=== PATIENT | female | born 1930 | race Caucasian/White ===

== ENCOUNTER → 2016-05-03 | Outpatient (CLI) | payer MEDICARE, BC ==
[2016-05-03 09:00] LABS: CH 30.1; CHCM 33.1; HCT 35.2 % (34.0-46.0); HDW 2.37; HGB 11.6 gm/dL (11.4-16.0); MCH 30.2 pg (25.0-35.0); MCV 91.4 fL (80.0-100.0); Mean Platelet Volume 7.8; RBC 3.85 m/uL (3.80-5.40); RDW 13.2 % (11.5-15.5)
[2016-05-03 10:28] LABS: Calcium 9.7 mg/dL (8.4-10.2); Total Bilirubin 0.7 mg/dL (0.2-1.3); Total Protein 6.6 g/dL (6.3-8.2)
== END | disposition home or self-care (01) ==
LOC: LABWHC1 08:40
PROVIDERS: ATTEND Internal Medicine
DX: E87.8 Other disorders of electrolyte and fluid balance, not elsewhere classified (principal); E78.4 Other hyperlipidemia; R53.83 Other fatigue; M79.1 Myalgia
CPT/HCPCS: 36415; 80053; 80061; 84443; 85027

== ENCOUNTER → 2016-05-13 | Outpatient (CLI) | payer MEDICARE, BC ==
--- NOTE | 2016-05-14 09:11 | MM ---
Reason for exam: screening (asymptomatic). Last mammogram was performed 1 year ago. History: Patient is postmenopausal. Benign excisional biopsy, January 07, 1997. Cyst aspiration of the left breast. Took estrogen for 10 years. Took progesterone for 10 years. Physical Findings: A clinical breast exam by your physician is recommended on an annual basis and results should be correlated with mammographic findings. MG 3D Screening Mammo W/Cad Bilateral CC and MLO view(s) were taken. XCCL view(s) were taken of the left breast. Prior study comparison: May 11, 2015, bilateral MG screening mammo w CAD. May 09, 2014, bilateral MG screening mammo w CAD. There are scattered fibroglandular densities. Finding: There are typically benign calcifications in both breasts. No significant changes in finding since May 11, 2015 and May 09, 2014. ASSESSMENT: Benign, BI-RAD 2 RECOMMENDATION: Routine screening mammogram of both breasts in 1 year.
== END | disposition home or self-care (01) ==
LOC: RADMAMWWP 09:15
PROVIDERS: ATTEND Obstetrics & Gynecology
DX: Z12.31 Encounter for screening mammogram for malignant neoplasm of breast (principal)
CPT/HCPCS: 77063; G0202

== ENCOUNTER 2016-06-30 16:09 | Emergency (ER) | payer OTHER, MEDICARE, BC ==
[2016-06-30 16:19] LABS: Glucose,Whole Blood 95 mg/dL (75-99)
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
[2016-06-30 16:21] VITALS: RESP 18
[2016-06-30] MEDS ORDERED: ENALAPRILAT 1.25 MG/ML 1 ML VIAL IVP STA (16:49)
[2016-06-30] MEDS ORDERED: ACETAMINOPHEN IV (For NPO) 1,000 MG in SALINE 1 100ML.BAG IVPB STA (16:50)
[2016-06-30 16:58] LABS: Aty Lym Flag Slight; Basophils # (A) 0.1 k/uL (0-0.2); Basophils % (A) 1 %; CHCM 33.1; Eosinophils # (A) 0.2 k/uL (0-0.7); Eosinophils % (A) 2 %; HCT 37.6 % (34.0-46.0); HDW 2.49; HGB 12.3 gm/dL (11.4-16.0); Luc # (Auto) 0.33; Luc % (Auto) 5; Lymphocytes # (A) 2.8 k/uL (1.0-4.8); Lymphocytes % (A) 38 %; MCH 29.8 pg (25.0-35.0); MCHC 32.8 g/dL (31.0-37.0); MCV 90.9 fL (80.0-100.0); Monocytes # (A) 0.5 k/uL (0-1.0); Monocytes % (A) 8 %; Neutrophils # (A) 3.3 k/uL (1.3-7.7); Neutrophils % (A) 46 %; RBC 4.13 m/uL (3.80-5.40); RDW 13.2 % (11.5-15.5); WBC 7.2 k/uL (3.8-10.6); WBC (Perox) 7.29
[2016-06-30 17:02] LABS: ALT 31 U/L (9-52); AST 43 U/L (14-36); Alkaline Phosphatase 58 U/L (38-126); Anion Gap 13 mmol/L; Blood Urea Nitrogen 24 mg/dL (7-17); Calcium 9.9 mg/dL (8.4-10.2); Carbon Dioxide 28 mmol/L (22-30); Chloride 96 mmol/L (98-107); Glucose 91 mg/dL (74-99); Non-African American GFR(MDRD) >60 (>60 ml/min/1.73 sqM); Potassium 4.2 mmol/L (3.5-5.1); Prothrombin Time 9.8 sec (9.0-12.0); Sodium 137 mmol/L (137-145); Total Bilirubin 0.7 mg/dL (0.2-1.3)
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
[2016-06-30 17:15] LABS: Partial Thromboplastin Time 21.3 sec (22.0-30.0)
[2016-06-30] MEDS ORDERED: LABETALOL SYRINGE 5 MG/ML IVP STA (17:49)
[2016-06-30 18:29] VITALS: BP 143/69; PULSE 53; TEMP 98.3
== END 2016-06-30 18:29 | disposition home or self-care (01) ==
LOC: SUPCPDRO 16:09 → EC 16:09
DX: S16.1XXA Strain of muscle, fascia and tendon at neck level, initial encounter (principal); T14.90 Injury, unspecified; R51 Headache; I10 Essential (primary) hypertension; I67.1 Cerebral aneurysm, nonruptured; E03.9 Hypothyroidism, unspecified; E78.5 Hyperlipidemia, unspecified; V43.62XA Car passenger injured in collision with other type car in traffic accident, initial encounter; Z87.891 Personal history of nicotine dependence; Z79.82 Long term (current) use of aspirin; Z79.899 Other long term (current) drug therapy; Z88.2 Allergy status to sulfonamides; Z88.5 Allergy status to narcotic agent; Z88.4 Allergy status to anesthetic agent
CPT/HCPCS: 99285; 96374; 96375 ×2; 36415; 93005; 80053; 85025; 85610; 85730; 71010; 72170; 70450; J0131

== ENCOUNTER → 2016-10-24 | Outpatient (CLI) | payer MEDICARE, BC ==
[2016-10-24 10:04] LABS: Anion Gap 8 mmol/L; Blood Urea Nitrogen 21 mg/dL (7-17); Calcium 9.8 mg/dL (8.4-10.2); Carbon Dioxide 30 mmol/L (22-30); Chloride 100 mmol/L (98-107); Cholesterol 228 mg/dL (<200); Glucose 95 mg/dL (74-99); HDL Cholesterol 65 mg/dL (40-60); Non-African American GFR(MDRD) 52 (>60 ml/min/1.73 sqM); Potassium 4.6 mmol/L (3.5-5.1); Sodium 138 mmol/L (137-145); Triglycerides 154 mg/dL (<150)
== END | disposition home or self-care (01) ==
LOC: LABWHC1 09:14
PROVIDERS: ATTEND Internal Medicine
DX: E78.4 Other hyperlipidemia (principal); E87.8 Other disorders of electrolyte and fluid balance, not elsewhere classified; R53.83 Other fatigue
CPT/HCPCS: 36415; 80048; 80061; 84443

== ENCOUNTER → 2017-04-28 | Outpatient (CLI) | payer MEDICARE, BC ==
[2017-04-28 10:00] LABS: HGB 12.1 gm/dL (11.4-16.0); MCHC 31.9 g/dL (31.0-37.0); Platelet Count 237 k/uL (150-450); RBC 4.04 m/uL (3.80-5.40); RDW 14.4 % (11.5-15.5); WBC 5.3 k/uL (3.8-10.6)
[2017-04-28 10:20] LABS: ALT 34 U/L (9-52); AST 29 U/L (14-36); Albumin 3.9 g/dL (3.5-5.0); Alkaline Phosphatase 59 U/L (38-126); Anion Gap 8 mmol/L; Blood Urea Nitrogen 17 mg/dL (7-17); Carbon Dioxide 33 mmol/L (22-30); Chloride 97 mmol/L (98-107); Cholesterol 218 mg/dL (<200); Glucose 94 mg/dL (74-99); HDL Cholesterol 65 mg/dL (40-60); LDL Cholesterol,Calculated 125 mg/dL (0-99); Potassium 4.3 mmol/L (3.5-5.1); Sodium 138 mmol/L (137-145); Total Bilirubin 0.6 mg/dL (0.2-1.3); Total Protein 6.6 g/dL (6.3-8.2); Triglycerides 139 mg/dL (<150)
== END | disposition home or self-care (01) ==
LOC: LABWHC1 09:06
PROVIDERS: ATTEND Internal Medicine
DX: E87.8 Other disorders of electrolyte and fluid balance, not elsewhere classified (principal); E78.2 Mixed hyperlipidemia; R53.83 Other fatigue; E03.9 Hypothyroidism, unspecified
CPT/HCPCS: 36415; 80053; 80061; 84443; 85027

== ENCOUNTER → 2017-06-05 | Outpatient (CLI) | payer MEDICARE, BC ==
--- NOTE | 2017-06-05 12:25 | MM ---
Reason for exam: screening (asymptomatic). Last mammogram was performed 1 year and 1 month ago. History: Patient is postmenopausal. Benign excisional biopsy, January 07, 1997. Cyst aspiration of the left breast. Took estrogen for 10 years. Took progesterone for 10 years. Physical Findings: A clinical breast exam by your physician is recommended on an annual basis and results should be correlated with mammographic findings. MG 3D Screening Mammo W/Cad Bilateral CC and MLO view(s) were taken. Prior study comparison: May 13, 2016, bilateral MG 3d screening mammo w/cad. May 11, 2015, bilateral MG screening mammo w CAD. The breast tissue is heterogeneously dense. This may lower the sensitivity of mammography. No significant changes when compared with prior studies. ASSESSMENT: Benign, BI-RAD 2 RECOMMENDATION: Routine screening mammogram of both breasts in 1 year.
== END | disposition home or self-care (01) ==
LOC: RADMAMWWP 07:59
PROVIDERS: ATTEND Internal Medicine
DX: Z12.31 Encounter for screening mammogram for malignant neoplasm of breast (principal)
CPT/HCPCS: 77063; 77067

== ENCOUNTER → 2017-06-06 | Outpatient (CLI) | payer MEDICARE, BC ==
--- NOTE | 2017-06-06 08:40 | MR ---
EXAMINATION TYPE: MR angio head wo con DATE OF EXAM: 06/06/2017 COMPARISON: MRA brain dated 05-26-2014. HISTORY: Cerebral aneurysm, nonruptured TECHNIQUE: Time of flight images focusing on the [place] of [place] were performed without contrast.. 2-D and 3-D postprocessing imaging is performed on MRI scanner. FINDINGS: There is dominant right vertebral artery redemonstrated. There is hypoplastic left vertebr al artery. There is no significant focal stenosis or aneurysmal change in the posterior circulation. Hypoplastic posterior communicating arteries are once again noted. Images of the anterior circulation redemonstrated 6 x 4 mm eccentric aneurysm of distal internal meza tid artery shows tortuous course axial image 90. This appears stable from prior study. There is short length anterior to indicating artery redemonstrated. No new aneurysm is present. 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 No new ane urysm is seen.
== END | disposition home or self-care (01) ==
LOC: RADMRIMAIN 07:07
PROVIDERS: ATTEND Neurological Surgery
DX: I67.1 Cerebral aneurysm, nonruptured (principal)
CPT/HCPCS: 70544

== ENCOUNTER 2017-09-04 12:45 | Emergency (ER) | payer MEDICARE, BC ==
[2017-09-04] MEDS ORDERED: SODIUM CHLORIDE 0.9% 1,000 ML IV STA (12:49)
[2017-09-04] MEDS ORDERED: SODIUM CHLORIDE 0.9% 500 ML IV STA (12:49)
[2017-09-04 13:22] LABS: Basophils # (A) 0.1 k/uL (0-0.2); Basophils % (A) 1 %; Eosinophils # (A) 0.2 k/uL (0-0.7); Eosinophils % (A) 2 %; HCT 35.8 % (34.0-46.0); HGB 12.3 gm/dL (11.4-16.0); Lymphocytes # (A) 1.8 k/uL (1.0-4.8); Lymphocytes % (A) 24 %; MCH 30.4 pg (25.0-35.0); MCHC 34.4 g/dL (31.0-37.0); MCV 88.2 fL (80.0-100.0); Mean Platelet Volume 7.7; Monocytes # (A) 0.5 k/uL (0-1.0); Monocytes % (A) 7 %; Neutrophils # (A) 4.7 k/uL (1.3-7.7); Neutrophils % (A) 64 %; Platelet Count 219 k/uL (150-450); RBC 4.05 m/uL (3.80-5.40); RDW 13.4 % (11.5-15.5); WBC 7.4 k/uL (3.8-10.6)
[2017-09-04 13:34] LABS: Albumin 4.2 g/dL (3.5-5.0); Calcium 9.8 mg/dL (8.4-10.2); Potassium 4.1 mmol/L (3.5-5.1); Total Bilirubin 0.7 mg/dL (0.2-1.3); Total Protein 6.6 g/dL (6.3-8.2)
[2017-09-04 13:37] LABS: Appearance,Urine Clear (Clear); Bacteria,Urine Rare /hpf; Bilirubin,Urine Negative (Negative); Blood,Urine Negative (Negative); Color,Urine Light Yellow; Glucose,Urine (UA) Negative (Negative); Ketones,Urine Negative (Negative); Leukocyte Esterase,Urine Moderate (Negative); Mucus,Urine Rare /hpf; Nitrite,Urine Negative (Negative); Protein,Urine Negative (Negative); RBC,Urine 3 /hpf (0-5); Specific Gravity,Urine 1.009 (1.001-1.035); Squamous Epithelial Cell,Urine 1 /hpf (0-4); Urobilinogen,Urine <2.0 mg/dL (<2.0); WBC,Urine 3 /hpf (0-5)
[2017-09-04 13:39] LABS: Creatine Kinase 118 U/L (30-135)
[2017-09-04 13:46] LABS: Prothrombin Time 9.6 sec (9.0-12.0)
--- NOTE | 2017-09-04 13:52 | CT ---
EXAMINATION TYPE: CT brain wo con DATE OF EXAM: 09/04/2017 COMPARISON: 06/30/2016 HISTORY: Patient complains of syncopeal episode today. CT DLP: 772.[address] of the brain was performed. The ventricles, basal cisterns and sulci overlying the cerebral convexities demonstrate mild enlargem ent. There is no evidence for intracranial hemorrhage or sulcal effacement. There is decreased attenuation about the periventricular white matter and deep white matter of both c erebral hemispheres, compatible with chronic small vessel ischemia. Differential diagnosis does inclu de demyelination. No mass effects are seen.No midline shift. Osseous calvarium is intact. If symptoms persist consider MRI. IMPRESSION: 1. Age related atrophic and chronic small vessel ischemic change without acute intracranial process s een at this time.
[2017-09-04 13:53] LABS: Troponin I <0.012 ng/mL (0.000-0.034)
--- NOTE | 2017-09-04 13:53 | XR ---
EXAMINATION TYPE: XR chest 2V DATE OF EXAM: 09/04/2017 COMPARISON: 06/30/2016 HISTORY: Shortness of breath TECHNIQUE: Frontal and lateral views of the chest are obtained. FINDINGS: Scattered senescent parenchymal changes noted. Hyperinflation compatible with COPD. No evidence for infiltrate. No evidence for atelectasis. Heart size is stable. Mediastinal structures are stable and grossly unremarkable. No evidence for hilar prominence. Degenerative changes dorsal spine. IMPRESSION: 1. No evidence for acute pulmonary disease.
[2017-09-04 13:59] LABS: Creatine Kinase MB 3.6 ng/mL (0.0-2.4)
[2017-09-04 14:15] LABS: D-Dimer 0.68 mg/L FEU (<0.60); Partial Thromboplastin Time 19.7 sec (22.0-30.0)
[2017-09-04] MEDS ORDERED: RX INFO: IV CONTRAST WAS GIVEN 1 EACH MISC MISCELLANE PRN (14:18)
--- NOTE | 2017-09-04 14:46 | ED ---
Syncope HPI - General Chief Complaint: Dizziness Stated Complaint: Syncope Time Seen by Provider: 09/04/17 12:45 Source: patient, EMS, RN notes reviewed Mode of arrival: EMS Limitations: no limitations - History of Present Illness Initial Comments: This 87-year-old female who was out gardening today when she apparently get lightheaded and passed out for about a minute. 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 She had no chest pain palpitations fevers chills nausea vomiting sweats or other symptoms. She was brought in by EMS. MD Complaint: loss of consciousness - Related Data Home Medications Medication Instructions Recorded Confirmed Aspirin 81 mg PO HS 12/02/14 09/04/17 Levothyroxine Sodium [Synthroid] 25 mcg PO DAILY 12/02/14 09/04/17 Losartan Potassium [Cozaar] 50 mg PO DAILY 12/02/14 09/04/17 Multivitamins, Thera [Theragran] 1 tab PO DAILY 12/02/14 09/04/17 Pravastatin Sodium [Pravachol] 80 mg PO HS 12/02/14 09/04/17 Triamterene/Hydrochlorothiazid 1 tab PO DAILY 12/02/14 09/04/17 [Maxzide 37.5-25] Vit C/E/Zn/Coppr/Lutein/Zeaxan 1 cap PO BID 09/04/17 09/04/17 [Preservision Areds 2 Softgel] Allergies Allergy/AdvReac Type Severity Reaction Status Date / Time codeine AdvReac Unknown Verified 09/04/17 13:29 sulfamethoxazole AdvReac Unknown Verified 09/04/17 13:29 [From ] trimethoprim [From ] AdvReac Unknown Verified 09/04/17 13:29 ANESTHETICS AdvReac Unknown Uncoded 09/04/17 13:29 Review of Systems ROS Statement: Those systems with pertinent positive or pertinent negative responses have been documented in the HPI. ROS Other: All systems not noted in ROS Statement are negative. Past Medical History Past Medical History: Hyperlipidemia, Hypertension, Syncope, Thyroid Disorder Additional Past Medical History / Comment(s): hypothyroid. Brain Aneurysm - sees Dr Russo; saw in Last May 2014, everything was okay. Sees Dr Crews outpt for history of syncopal episodes History of Any Multi-Drug Resistant Organisms: None Reported Past Surgical History: Appendectomy, Tonsillectomy Additional Past Surgical History / Comment(s): "PER PT UNKNOWN" Past Anesthesia/Blood Transfusion Reactions: Previous Problems w/ Anesthesia Additional Past Anesthesia/Blood Transfusion Reaction / Comment(s): Sensitive to anesthesia; hard to wake up Past Psychological History: No Psychological Hx Reported Smoking Status: Former smoker Past Alcohol Use History: None Reported Past Drug Use History: None Reported - Past Family History Father History Unknown: Yes Family Medical History: Chest Pain / Angina Mother History Unknown: Yes Family Medical History: Hypertension Additional Family Medical History / Comment(s): born with heart problem Brother(s) History Unknown: Yes Family Medical History: Cancer Additional Family Medical History / Comment(s): one - Throat cancer. second - Spine cancer, DVT Son(s) History Unknown: Yes Family Medical History: Thyroid Disorder Additional Family Medical History / Comment(s): Ulcerative Colitis Daughter(s) History Unknown: Yes Family Medical History: Thyroid Disorder General Exam - General Exam Comments Initial Comments: This is a well up well-nourished awake alert oriented 3 female Limitations: no limitations General appearance: alert, in no apparent distress Head exam: Present: atraumatic, normocephalic, normal inspection Eye exam: Present: normal appearance, PERRL, EOMI. Absent: scleral icterus, conjunctival injection, periorbital swelling ENT exam: Present: mucous membranes dry Neck exam: Present: normal inspection. Absent: tenderness, meningismus, lymphadenopathy Respiratory exam: Present: normal lung sounds bilaterally. Absent: respiratory distress, wheezes, rales, rhonchi, stridor Cardiovascular Exam: Present: normal rhythm, bradycardia, normal heart sounds. Absent: systolic murmur, diastolic murmur, rubs, gallop, clicks GI/Abdominal exam: Present: soft, normal bowel sounds. Absent: distended, tenderness, guarding, rebound, rigid Extremities exam: Present: normal inspection, full ROM, normal capillary refill. Absent: tenderness, pedal edema, joint swelling, calf tenderness Back exam: Present: normal inspection Neurological exam: Present: alert, oriented X3, CN II-XII intact Psychiatric exam: Present: normal affect, normal mood Skin exam: Present: warm, dry, intact, normal color. Absent: rash Course Vital Signs 09/04/17 09/04/17 09/04/17 12:46 13:55 14:10 Temperature 98.0 F Pulse Rate 56 L 57 L Pulse Rate [ 54 L Right Sitting Healthcare Marketer ] Pulse Rate [ 60 Right Standing Healthcare Marketer ] Pulse Rate [ 57 L Right Supine Healthcare Marketer ] Respiratory 18 18 Rate Blood Pressure 175/75 154/71 Blood Pressure 165/74 [Right Arm Sitting] Blood Pressure 164/75 [Right Arm Standing] Blood Pressure 168/74 [Right Arm Supine] O2 Sat by Pulse 97 100 Oximetry EKG Findings - EKG Results: EKG: interpreted by CHINYERE, sinus rhythm (Sinus bradycardia rate of 56. Interval 196 QRS duration 100 QT since QTC of 440/[address]-T wave changes) Medical Decision Making - Medical Decision Making I did reevaluate patient several occasions she showing much improved she'll be discharged the presentation consistent with orthostatic episode secondary to dehydration - Lab Data Result diagrams: 09/04/17 13:10 09/04/17 13:10 Lab Results 09/04/17 09/04/17 09/04/17 Range/Units 12:48 13:10 13:10 WBC 7.4 (3.8-10.6) k/uL RBC 4.05 (3.80-5.40) m/uL Hgb 12.3 (11.4-16.0) gm/dL Hct 35.8 (34.0-46.0) % MCV 88.2 (80.0-100.0) fL MCH 30.4 (25.0-35.0) pg MCHC 34.4 (31.0-37.0) g/dL RDW 13.4 (11.5-15.5) % Plt Count 219 (150-450) k/uL Neutrophils % 64 % Lymphocytes % 24 % Monocytes % 7 % Eosinophils % 2 % Basophils % 1 % Neutrophils # 4.7 (1.3-7.7) k/uL Lymphocytes # 1.8 (1.0-4.8) k/uL Monocytes # 0.5 (0-1.0) k/uL Eosinophils # 0.2 (0-0.7) k/uL Basophils # 0.1 (0-0.2) k/uL PT (9.0-12.0) sec INR (<1.2) APTT (22.0-30.0) sec D-Dimer (<0.60) mg/L FEU Sodium (137-145) mmol/L Potassium (3.5-5.1) mmol/L Chloride (98-107) mmol/L Carbon Dioxide (22-30) mmol/L Anion Gap mmol/L BUN (7-17) mg/dL Creatinine (0.52-1.04) mg/dL Est GFR (CKD-EPI)AfAm (>60 ml/min/1.73 sqM) Est GFR (CKD-EPI)NonAf (>60 ml/min/1.73 sqM) Glucose (74-99) mg/dL Calcium (8.4-10.2) mg/dL Magnesium (1.6-2.3) mg/dL Total Bilirubin (0.2-1.3) mg/dL AST (14-36) U/L ALT (9-52) U/L Alkaline Phosphatase (38-126) U/L Total Creatine Kinase 118 (30-135) U/L CK-MB (CK-2) 3.6 H* (0.0-2.4) ng/mL CK-MB (CK-2) Rel Index 3.1 Troponin I <0.012 (0.000-0.034) ng/mL Total Protein (6.3-8.2) g/dL Albumin (3.5-5.0) g/dL Urine Color Light Yellow Urine Appearance Clear (Clear) Urine pH 8.0 (5.0-8.0) Ur Specific [place] 1.009 (1.001-1.035) Urine Protein Negative (Negative) Urine Glucose (UA) Negative (Negative) Urine Ketones Negative (Negative) Urine Blood Negative (Negative) Urine Nitrite Negative (Negative) Urine Bilirubin Negative (Negative) Urine Urobilinogen <2.0 (<2.0) mg/dL Ur Leukocyte Esterase Moderate H (Negative) Urine RBC 3 (0-5) /hpf Urine WBC 3 (0-5) /hpf Ur Squamous Epith Cells 1 (0-4) /hpf Urine Bacteria Rare H (None) /hpf Urine Mucus Rare H (None) /hpf 09/04/17 09/04/17 Range/Units 13:10 13:10 WBC (3.8-10.6) k/uL RBC (3.80-5.40) m/uL Hgb (11.4-16.0) gm/dL Hct (34.0-46.0) % MCV (80.0-100.0) fL MCH (25.0-35.0) pg MCHC (31.0-37.0) g/dL RDW (11.5-15.5) % Plt Count (150-450) k/uL Neutrophils % % Lymphocytes % % Monocytes % % Eosinophils % % Basophils % % Neutrophils # (1.3-7.7) k/uL Lymphocytes # (1.0-4.8) k/uL Monocytes # (0-1.0) k/uL Eosinophils # (0-0.7) k/uL Basophils # (0-0.2) k/uL PT 9.6 (9.0-12.0) sec INR 1.0 (<1.2) APTT 19.7 L (22.0-30.0) sec D-Dimer 0.68 H (<0.60) mg/L FEU Sodium 136 L (137-145) mmol/L Potassium 4.1 (3.5-5.1) mmol/L Chloride 96 L (98-107) mmol/L Carbon Dioxide 30 (22-30) mmol/L Anion Gap 10 mmol/L BUN 24 H (7-17) mg/dL Creatinine 0.84 (0.52-1.04) mg/dL Est GFR (CKD-EPI)AfAm 73 (>60 ml/min/1.73 sqM) Est GFR (CKD-EPI)NonAf 64 (>60 ml/min/1.73 sqM) Glucose 91 (74-99) mg/dL Calcium 9.8 (8.4-10.2) mg/dL Magnesium 2.0 (1.6-2.3) mg/dL Total Bilirubin 0.7 (0.2-1.3) mg/dL AST 33 (14-36) U/L ALT 31 (9-52) U/L Alkaline Phosphatase 49 (38-126) U/L Total Creatine Kinase (30-135) U/L CK-MB (CK-2) (0.0-2.4) ng/mL CK-MB (CK-2) Rel Index Troponin I (0.000-0.034) ng/mL Total Protein 6.6 (6.3-8.2) g/dL Albumin 4.2 (3.5-5.0) g/dL Urine Color Urine Appearance (Clear) Urine pH (5.0-8.0) Ur Specific [place] (1.001-1.035) Urine Protein (Negative) Urine Glucose (UA) (Negative) Urine Ketones (Negative) Urine Blood (Negative) Urine Nitrite (Negative) Urine Bilirubin (Negative) Urine Urobilinogen (<2.0) mg/dL Ur Leukocyte Esterase (Negative) Urine RBC (0-5) /hpf Urine WBC (0-5) /hpf Ur Squamous Epith Cells (0-4) /hpf Urine Bacteria (None) /hpf Urine Mucus (None) /hpf - Radiology Data Radiology results: report reviewed (Review the imaging shows no acute findings.) , image reviewed Disposition Clinical Impression: Orthostatic hypotension, Dehydration Disposition: HOME SELF-CARE Condition: Good Instructions: Dizziness (ED), Dehydration (ED), Syncope (ED) Is patient prescribed a controlled substance at d/c from ED?: No Referrals: Juan Mays MD [Primary Care Provider] - 1-2 days
--- NOTE | 2017-09-04 15:05 | CT ---
EXAMINATION TYPE: CT angio chest DATE OF EXAM: 09/04/2017 COMPARISON: NONE HISTORY: Elevated D-dimer. CT DLP: 152.3 mGycm CONTRAST: CT chest with contrast and 3D reconstruction with MIP imaging is performed with IV Contrast, patient injected with 75ml mL of Isovue 370. Contrast-enhanced CT of the chest was performed through the course of the pulmonary arteries with mamie g and mediastinal window settings submitted. 3D reconstruction with MIP imaging was also performed. PULMONARY ARTERIES: The pulmonary arteries and their major tributaries are patent. I do not see karen dence for sizable filling defect to suggest pulmonary embolic process. LUNGS: The lungs are clear and free of infiltrate. No evidence for atelectasis. No pulmonary nodule or mass is detected. No pleural effusion. Mild scattered interstitial fibrosis. MEDIASTINUM: Thoracic aorta is of normal caliber,however, evaluation is limited given timing of the contrast bolus. If there is concern for thoracic aortic pathology consider LEANN. Correlate clinicall y . The heart is not enlarged. No evidence for mediastinal mass. No mediastinal lymph nodes greater than 1cm. HILAR STRUCTURES: No evidence for mass. No hilar lymph nodes greater than 1 cm. UPPER ABDOMEN: No significant abnormality is seen. IMPRESSION: 1. No evidence for Pulmonary embolism at this time.
[2017-09-04 15:20] VITALS: BP 162/69; PULSE 65; RESP 17; TEMP 97.1
== END 2017-09-04 15:25 | disposition home or self-care (01) ==
LOC: EC 12:45
DX: E86.0 Dehydration (principal); I95.1 Orthostatic hypotension; E78.5 Hyperlipidemia, unspecified; I10 Essential (primary) hypertension; E03.9 Hypothyroidism, unspecified; Z87.891 Personal history of nicotine dependence; Z90.49 Acquired absence of other specified parts of digestive tract; Z79.82 Long term (current) use of aspirin; Z79.899 Other long term (current) drug therapy; Z88.1 Allergy status to other antibiotic agents; Z88.2 Allergy status to sulfonamides; Z88.5 Allergy status to narcotic agent
CPT/HCPCS: 36415; 93005; 85379; 80053; 82550; 82553; 83735; 84484; 85025; 85610; 85730; 81001; 71046; 70450; 71275; 99285; 96360; Q9967

== ENCOUNTER → 2017-10-10 | Outpatient (CLI) | payer MEDICARE, BC ==
[2017-10-10 10:10] LABS: Potassium 4.1 mmol/L (3.5-5.1)
== END | disposition home or self-care (01) ==
LOC: LABWHC1 09:14
PROVIDERS: ATTEND Internal Medicine
DX: E78.2 Mixed hyperlipidemia (principal); E03.9 Hypothyroidism, unspecified; E87.8 Other disorders of electrolyte and fluid balance, not elsewhere classified
CPT/HCPCS: 36415; 80048; 80061; 84443

== ENCOUNTER → 2018-04-30 | Outpatient (CLI) | payer MEDICARE, BC ==
[2018-04-30 10:28] LABS: HCT 37.3 % (34.0-46.0); HGB 11.9 gm/dL (11.4-16.0); MCH 29.9 pg (25.0-35.0); MCV 93.3 fL (80.0-100.0); Mean Platelet Volume 7.3; Platelet Count 231 k/uL (150-450); RDW 13.6 % (11.5-15.5); WBC 5.3 k/uL (3.8-10.6)
[2018-04-30 17:53] LABS: Albumin 4.2 g/dL (3.80-4.90); Albumin/Globulin Ratio 2.33 (1.20-2.10); Anion Gap 9.9 mmol/L (4.00-12.00); Calcium 9.7 mg/dL (8.7-10.3); Carbon Dioxide 30.1 mmol/L (21.6-31.8); Globulin 1.8 g/dL (1.6-3.3); LDL Cholesterol,Calculated 108.4 mg/dL (0.0-131.0); Total Bilirubin 0.9 mg/dL (0.2-1.2); VLDL Calculation 25.6 mg/dL (5.00-40.00)
== END | disposition home or self-care (01) ==
LOC: LABWHC1 09:34
PROVIDERS: ATTEND Internal Medicine
DX: E87.8 Other disorders of electrolyte and fluid balance, not elsewhere classified (principal); E78.41 Elevated Lipoprotein(a); R53.83 Other fatigue
CPT/HCPCS: 36415; 80053; 80061; 84443; 85027

== ENCOUNTER → 2018-06-23 | Outpatient (CLI) | payer MEDICARE, BC ==
--- NOTE | 2018-06-23 15:17 | BD ---
EXAMINATION TYPE: Axial Bone Density DATE OF EXAM: 06/23/2018 CLINICAL HISTORY: Height: 64 Weight: 131 FRAX RISK QUESTIONS: Alcohol (3 or more units per day): no Family History (Parent hip fracture): no Glucocorticoids (More than 3mos): no (Ex: prednisone, prednisolone, methylprednisolone, dexamethasone, and hydrocortisone). History of Fracture in Adulthood: wrist, ankle Secondary Osteoporosis: 1. Type 1 Diabetes: no 2. Hyperthyroidism: unsure 3. Menopause before 45: no 4. Malnutrition: no 5. Chronic liver disease: no Rheumatoid Arthritis: no Current Tobacco Use: no RISK FACTORS HISTORY OF: History of Wrist Fracture: yes, right When: as a young mother Family History of Osteoporosis: unsure Active: yes Diet low in dairy products/other sources of calcium: no Postmenopausal woman: yes Take estrogen and/or progesterone medications: not now How long: about 10 years Lost more than 2 inches in height since high school: no Frequent falls: no Poor Health: no Hyperparathyroidism: no Adrenal Insufficiency: no MEDICATIONS: Prednisone or other steroids: no Thyroid Medications: yes Which medication: Levothyroxine How Long: originally synthroid in 2013 Osteoporosis Medications:no Additional Medications: blood pressure meds, cholesterol meds Additional History: EXAM MEASUREMENTS: Bone mineral densitometry was performed using the [employer]. Bone mineral density as measured about the Lumbar spine is: ----- L1-L4(G/cm2): 1.364 T Score Values are as follows: ----- L2: 1.0 ----- L3: 3.4 ----- L4: 2.3 ----- L1-L4: 1.5 Bone mineral density has: Increased 5.7% since study of: 05/06/2013 Bone mineral density about the R hip (g/cm2): 0.795 Bone mineral density about the L hip (g/cm2): 0.809 T Score values are as follows: -----R Neck: -1/7 -----L Neck: -1.6 -----R Total: -0.5 -----L Total: -0.6 Bone mineral density has: Decreased -3.8% since study of: 05/06/2013 IMPRESSION: No evidence for osteoporosis or osteopenia. NOTE: T-SCORE=SD OF THE YOUNG ADULT MEAN.
--- NOTE | 2018-06-24 10:35 | MM ---
Reason for exam: screening (asymptomatic). Last mammogram was performed 1 year and 1 month ago. History: Patient is postmenopausal. Family history of breast cancer in daughter. Benign excisional biopsy, January 07, 1997. Cyst aspiration of the left breast. Took estrogen for 10 years. Took progesterone for 10 years. Physical Findings: A clinical breast exam by your physician is recommended on an annual basis and results should be correlated with mammographic findings. MG 3D Screening Mammo W/Cad Bilateral CC and MLO view(s) were taken. XCCL view(s) were taken of the left breast. Prior study comparison: June 05, 2017, bilateral MG 3d screening mammo w/cad. May 13, 2016, bilateral MG 3d screening mammo w/cad. The breast tissue is heterogeneously dense. This may lower the sensitivity of mammography. Finding: There are typically benign vascular, round calcifications. There is no discrete abnormality. ASSESSMENT: Benign, BI-RAD 2 RECOMMENDATION: Routine screening mammogram of both breasts in 1 year.
== END ==
LOC: RADBDWWP 08:39
PROVIDERS: ATTEND Internal Medicine
DX: Z12.31 Encounter for screening mammogram for malignant neoplasm of breast (principal); Z13.820 Encounter for screening for osteoporosis
CPT/HCPCS: 77063; 77067; 77080

== ENCOUNTER → 2018-11-02 | Outpatient (CLI) | payer MEDICARE, BC ==
[2018-11-02 17:48] LABS: African American GFR (CKD) 67.1 (60.0-200.0); Anion Gap 7.5 mmol/L (4.00-12.00); Calcium 9.6 mg/dL (8.7-10.3); Carbon Dioxide 31.5 mmol/L (21.6-31.8); LDL Cholesterol,Calculated 104.4 mg/dL (0.0-131.0); VLDL Calculation 34.6 mg/dL (5.00-40.00)
== END | disposition home or self-care (01) ==
LOC: LABWHC1 09:11
PROVIDERS: ATTEND Internal Medicine
DX: E03.9 Hypothyroidism, unspecified (principal); E78.5 Hyperlipidemia, unspecified; R79.9 Abnormal finding of blood chemistry, unspecified
CPT/HCPCS: 36415; 80048; 80061; 84443

== ENCOUNTER 2019-03-25 15:08 | Emergency (ER) | payer MEDICARE, BC ==
[2019-03-25 15:19] VITALS: TEMP 98.5
--- NOTE | 2019-03-25 16:14 | CT ---
EXAMINATION TYPE: CT brain wo con DATE OF EXAM: 03/25/2019 COMPARISON: Prior CT brain 09/04/2017 HISTORY: Fall 5 days ago with injury. Pain. History of cerebral aneurysm. CT DLP: 996 mGycm Automated exposure control for dose reduction was used. CT using departmental protocol FINDINGS: There is no significant interval change. No evident hemorrhage or hydrocephalus. White matter low-att enuation is again seen compatible with chronic small vessel ischemic change. Cerebral vascular calcif ications are present. Orbits show symmetric appearance. Calvarium is intact. Paranasal sinuses and ma stoid air cells are unremarkable. Mild cortical atrophy noted. IMPRESSION: NO ACUTE BRAIN ABNORMALITY. STABLE FINDINGS.
--- NOTE | 2019-03-25 16:18 | ED ---
Headache HPI - General Chief Complaint: Headache Stated Complaint: fall-leg bruising & swelling/headache Time Seen by Provider: 03/25/19 15:20 Mode of arrival: ambulatory Limitations: no limitations - History of Present Illness Initial Comments: Patient is an 89-year-old female presenting to the emergency Department with complaints of a headache x 5 days. Patient states 5 days ago she fell inside a [employer] store after somebody ran into her. Patient states she fell mostly on her right hip. She denies hitting her head, LOC. Patient states she has been walking fine but does have a large bruise on the outside of her right hip. Patient presents today because she has been having an intermittent dull headache since this fall. Patient states she has history of a cerebral aneurysm that is being monitored every 3 years. Last MRA was 2 years ago and it was stable. Patient describes the headache as pressure behind her eyes as well as a little bit of pressure in the back of her head. Patient states it is not severe in nature. She does take Tylenol or Motrin for the pain which does help but then it seems to return. Patient did go to urgent care earlier in the week secondary to the large hematoma on her right lateral hip and she noticed her blood pressure was high there. Upon arrival at the ER today her pressure is elevated at 186/77. Rest of vital signs are normal. Patient denies blurry vision, difficulty in walking, fever. Patient has no other complaints at this time. - Related Data Home Medications Medication Instructions Recorded Confirmed Aspirin 81 mg PO HS 12/02/14 09/04/17 Levothyroxine Sodium [Synthroid] 25 mcg PO DAILY 12/02/14 09/04/17 Losartan Potassium [Cozaar] 50 mg PO DAILY 12/02/14 09/04/17 Multivitamins, Thera [Theragran] 1 tab PO DAILY 12/02/14 09/04/17 Pravastatin Sodium [Pravachol] 80 mg PO HS 12/02/14 09/04/17 Triamterene/Hydrochlorothiazid 1 tab PO DAILY 12/02/14 09/04/17 [Maxzide 37.5-25] Vit C/E/Zn/Coppr/Lutein/Zeaxan 1 cap PO BID 09/04/17 09/04/17 [Preservision Areds 2 Softgel] Allergies Allergy/AdvReac Type Severity Reaction Status Date / Time codeine AdvReac Unknown Verified 03/25/19 15:18 sulfamethoxazole AdvReac Unknown Verified 03/25/19 15:18 [From ] trimethoprim [From ] AdvReac Unknown Verified 03/25/19 15:18 ANESTHETICS AdvReac Unknown Uncoded 03/25/19 15:18 Review of Systems ROS Statement: Those systems with pertinent positive or pertinent negative responses have been documented in the HPI. ROS Other: All systems not noted in ROS Statement are negative. Past Medical History Past Medical History: Hyperlipidemia, Hypertension, Syncope, Thyroid Disorder Additional Past Medical History / Comment(s): hypothyroid. Brain Aneurysm - sees Dr Russo; saw in Last May 2014, everything was okay. Sees Dr Crews outpt for history of syncopal episodes History of Any Multi-Drug Resistant Organisms: None Reported Past Surgical History: Appendectomy, Tonsillectomy Additional Past Surgical History / Comment(s): "PER PT UNKNOWN" Past Anesthesia/Blood Transfusion Reactions: Previous Problems w/ Anesthesia Additional Past Anesthesia/Blood Transfusion Reaction / Comment(s): Sensitive to anesthesia; hard to wake up Past Psychological History: No Psychological Hx Reported Smoking Status: Former smoker Past Alcohol Use History: None Reported Past Drug Use History: None Reported - Past Family History Father History Unknown: Yes Family Medical History: Chest Pain / Angina Mother History Unknown: Yes Family Medical History: Hypertension Additional Family Medical History / Comment(s): born with heart problem Brother(s) History Unknown: Yes Family Medical History: Cancer Additional Family Medical History / Comment(s): one - Throat cancer. second - Spine cancer, DVT Son(s) History Unknown: Yes Family Medical History: Thyroid Disorder Additional Family Medical History / Comment(s): Ulcerative Colitis Daughter(s) History Unknown: Yes Family Medical History: Thyroid Disorder General Exam - General Exam Comments Initial Comments: GENERAL: Well-appearing, well-nourished and in no acute distress. HEAD: Atraumatic, normocephalic. EYES: Pupils equal round and reactive to light, extraocular movements intact, sclera anicteric, conjunctiva are normal. ENT: TMs normal, nares patent, oropharynx clear without exudates. Moist mucous membranes. NECK: Normal range of motion, supple without lymphadenopathy or JVD. LUNGS: Breath sounds clear to auscultation bilaterally and equal. No wheezes rales or rhonchi. HEART: Regular rate and rhythm without murmurs, rubs or gallops. ABDOMEN: Soft, nontender, normoactive bowel sounds. No guarding, no rebound. No masses appreciated. : Deferred EXTREMITIES: Patient has a large hematoma on the right lateral hip and lateral upper leg. Patient has full, pain-free range of motion of the right hip. Patient has normal gait. She has no pain along the femur. PSYCH: Normal mood, normal affect. SKIN: Warm, Dry, normal turgor, no rashes or lesions noted. Limitations: no limitations Neurological exam: Present: alert, oriented X3, CN II-XII intact, normal gait Expanded Speech: Present: fluid speech Cranial nerves: EOM's Intact: Normal, Tongue Deviation: Normal, Nystagmus: Normal, Facial Sensation: Normal Cerebellar function: Finger to Nose: Normal Upper motor neuron: Pronator Drift: Normal Motor strength exam: RUE: 5, LUE: 5, RLE: 5, LLE: 5 Eye Response: (4) open spontaneously Motor Response: (6) obeys commands Verbal Response: (5) oriented Estella Total: 15 Course Vital Signs 03/25/19 03/25/19 15:16 16:18 Temperature 98.5 F Pulse Rate 80 64 Respiratory 20 16 Rate Blood Pressure 186/77 167/76 O2 Sat by Pulse 97 94 L Oximetry Medical Decision Making - Medical Decision Making Patient is an 89-year-old female presenting with a dull headache for the past few days. Patient did have a fall proximal to 5 days ago and his store however she did not hit her head. Patient has a large right thigh hematoma from the fall. Patient has full range of motion of her right hip and no pain palpation of the femur. Patient has normal gait. Patient did have an elevated BP upon arrival. Patient does have a history of cerebral aneurysm which is being monitored and has been stable. CT the head is normal, no acute bleeds. Labs are unremarkable. Patient was given some fluids and reports improvement in her symptoms. Recheck of vitals shows decreased BP at 167/76. Patient is stable for discharge at this time and she is in agreement with this plan of care. Patient will follow up with her PCP tomorrow or Friday. Return parameters were discussed with the patient and her and they both verbalized understanding. Case discussed with Dr. Nazario. - Lab Data Result diagrams: 03/25/19 16:32 03/25/19 16:32 Lab Results 03/25/19 03/25/19 Range/Units 16:32 16:32 WBC 6.4 (3.8-10.6) k/uL RBC 3.79 L (3.80-5.40) m/uL Hgb 11.7 (11.4-16.0) gm/dL Hct 34.1 (34.0-46.0) % MCV 90.0 (80.0-100.0) fL MCH 30.9 (25.0-35.0) pg MCHC 34.3 (31.0-37.0) g/dL RDW 13.1 (11.5-15.5) % Plt Count 230 (150-450) k/uL Neutrophils % 67 % Lymphocytes % 21 % Monocytes % 7 % Eosinophils % 1 % Basophils % 1 % Neutrophils # 4.3 (1.3-7.7) k/uL Lymphocytes # 1.3 (1.0-4.8) k/uL Monocytes # 0.5 (0-1.0) k/uL Eosinophils # 0.1 (0-0.7) k/uL Basophils # 0.1 (0-0.2) k/uL Sodium 134 L (137-145) mmol/L Potassium 4.3 (3.5-5.1) mmol/L Chloride 97 L (98-107) mmol/L Carbon Dioxide 31 H (22-30) mmol/L Anion Gap 6 mmol/L BUN 23 H (7-17) mg/dL Creatinine 1.11 H (0.52-1.04) mg/dL Est GFR (CKD-EPI)AfAm 52 (>60 ml/min/1.73 sqM) Est GFR (CKD-EPI)NonAf 45 (>60 ml/min/1.73 sqM) Glucose 98 (74-99) mg/dL Calcium 10.0 (8.4-10.2) mg/dL Total Bilirubin 0.9 (0.2-1.3) mg/dL AST 31 (14-36) U/L ALT 19 (4-34) U/L Alkaline Phosphatase 56 (38-126) U/L Total Protein 6.9 (6.3-8.2) g/dL Albumin 4.4 (3.5-5.0) g/dL Disposition Clinical Impression: Headache, Hematoma of right thigh Disposition: HOME SELF-CARE Condition: Stable Instructions (If sedation given, give patient instructions): Acute Headache (ED) Additional Instructions: Please return to the Emergency Department if symptoms worsen or any other concerns. Follow-up with PCP. Use Tylenol or Motrin for relief. Is patient prescribed a controlled substance at d/c from ED?: No Referrals: Lanette Funk MD [Primary Care Provider] - 1-2 days
[2019-03-25 16:24] VITALS: RESP 16
[2019-03-25 16:45] LABS: Basophils # (A) 0.1 k/uL (0-0.2); Basophils % (A) 1 %; Eosinophils # (A) 0.1 k/uL (0-0.7); Eosinophils % (A) 1 %; HCT 34.1 % (34.0-46.0); HGB 11.7 gm/dL (11.4-16.0); Lymphocytes # (A) 1.3 k/uL (1.0-4.8); Lymphocytes % (A) 21 %; MCH 30.9 pg (25.0-35.0); MCHC 34.3 g/dL (31.0-37.0); Mean Platelet Volume 8.4; Monocytes # (A) 0.5 k/uL (0-1.0); Monocytes % (A) 7 %; Neutrophils # (A) 4.3 k/uL (1.3-7.7); Neutrophils % (A) 67 %; Platelet Count 230 k/uL (150-450); RBC 3.79 m/uL (3.80-5.40); RDW 13.1 % (11.5-15.5); WBC 6.4 k/uL (3.8-10.6)
[2019-03-25 16:55] LABS: Albumin 4.4 g/dL (3.5-5.0); Potassium 4.3 mmol/L (3.5-5.1); Total Bilirubin 0.9 mg/dL (0.2-1.3); Total Protein 6.9 g/dL (6.3-8.2)
[2019-03-25] MEDS: SODIUM CHLORIDE 0.9% 500 ML 500 ML IV STA (17:56)
[2019-03-25 18:12] VITALS: BP 180/78; PULSE 59
[2019-03-25] MEDS: hydrALAZINE HCL 25 MG TAB PO STA (18:32)
== END 2019-03-25 18:35 | disposition home or self-care (01) ==
LOC: EC 15:08
DX: S70.11XA Contusion of right thigh, initial encounter (principal); R51 Headache; E78.5 Hyperlipidemia, unspecified; I10 Essential (primary) hypertension; E03.9 Hypothyroidism, unspecified; Z87.891 Personal history of nicotine dependence; Z88.2 Allergy status to sulfonamides; Z88.5 Allergy status to narcotic agent; Z88.8 Allergy status to other drugs, medicaments and biological substances; Z79.82 Long term (current) use of aspirin; Z79.890 Hormone replacement therapy; Z79.899 Other long term (current) drug therapy; Z86.69 Personal history of other diseases of the nervous system and sense organs; Z82.49 Family history of ischemic heart disease and other diseases of the circulatory system; W19.XXXA Unspecified fall, initial encounter; Y92.512 Supermarket, store or market as the place of occurrence of the external cause
CPT/HCPCS: 36415; 70450; 80053; 85025; 99284

== ENCOUNTER → 2019-10-12 | Outpatient (CLI) | payer MEDICARE, BC ==
--- NOTE | 2019-10-13 10:00 | MM ---
Reason for exam: screening (asymptomatic). Last mammogram was performed 1 year and 4 months ago. History: Patient is postmenopausal. Family history of breast cancer in daughter. Benign excisional biopsy, January 07, 1997. Cyst aspiration of the left breast. Took estrogen for 10 years. Took progesterone for 10 years. Physical Findings: A clinical breast exam by your physician is recommended on an annual basis and results should be correlated with mammographic findings. MG 3D Screening Mammo W/Cad Bilateral CC and MLO view(s) were taken. Prior study comparison: June 23, 2018, bilateral MG 3d screening mammo w/cad. June 05, 2017, bilateral MG 3d screening mammo w/cad. The breast tissue is heterogeneously dense. This may lower the sensitivity of mammography. Stable benign calcifications. There is no discrete abnormality. No significant changes when compared with prior studies. ASSESSMENT: Benign, BI-RAD 2 RECOMMENDATION: Routine screening mammogram of both breasts in 1 year.
== END | disposition home or self-care (01) ==
LOC: RADMAMWWP 12:53
PROVIDERS: ATTEND Family Medicine
DX: Z12.31 Encounter for screening mammogram for malignant neoplasm of breast (principal)
CPT/HCPCS: 77063; 77067

== ENCOUNTER → 2020-04-10 | Outpatient (CLI) | payer MEDICARE, BC ==
[2020-04-10 10:20] LABS: HCT 35.5 % (34.0-46.0); HGB 12.4 gm/dL (11.4-16.0); MCH 31.8 pg (25.0-35.0); MCHC 34.9 g/dL (31.0-37.0); Mean Platelet Volume 8.1; Platelet Count 207 k/uL (150-450); RDW 12.8 % (11.5-15.5); WBC 4.6 k/uL (3.8-10.6)
[2020-04-10 16:54] LABS: African American GFR (CKD) 66.2 (60.0-200.0); Anion Gap 7.3 mmol/L (4.00-12.00); BUN/Creat Ratio 17.78 Ratio (12.00-20.00); Calcium 9.6 mg/dL (8.7-10.3); Carbon Dioxide 29.7 mmol/L (21.6-31.8); Non-African American GFR(CKD) 57.1 (60.0-200.0); Potassium 3.8 mmol/L (3.5-5.5)
== END | disposition home or self-care (01) ==
LOC: LABWHC1 09:14
PROVIDERS: ATTEND Nurse Practitioner Family
DX: I12.9 Hypertensive chronic kidney disease with stage 1 through stage 4 chronic kidney disease, or unspecified chronic kidney disease (principal); N18.30 Chronic kidney disease, stage 3 unspecified; E87.8 Other disorders of electrolyte and fluid balance, not elsewhere classified; E87.6 Hypokalemia; E55.9 Vitamin D deficiency, unspecified; Z86.39 Personal history of other endocrine, nutritional and metabolic disease
CPT/HCPCS: 36415; 80048; 82306; 85027

== ENCOUNTER 2020-06-11 01:59 | Emergency (ER) | payer BC, MEDICARE ==
[2020-06-11 02:10] VITALS: RESP 18; TEMP 98.6
[2020-06-11] MEDS ORDERED: MORPHINE SULFATE 4 MG/ML SYRINGE IM STA (02:26)
--- NOTE | 2020-06-11 02:26 | ED ---
Extremity Problem HPI - General Chief complaint: Extremity Problem,Nontraumatic Stated complaint: Rt Leg Pain Time Seen by Provider: 06/11/20 02:06 Source: patient, RN notes reviewed, old records reviewed Mode of arrival: ambulatory Limitations: no limitations - History of Present Illness Initial comments: This is a 82-year-old female DF for evaluation patient Dese for evaluation of significant right lower extremity right hip right thigh pain with history of the same. No new trauma today. Symptoms worse with ambulation no fevers. Pain goes down to the knee MD Complaint: extremity pain, extremity swelling, joint pain -: days(s) Location: right, lower extremity History of Same: Yes -: Yes myalgia Radiation: distal Severity scale (1-10): 6 Quality: stabbing, aching Consistency: constant Improves with: nothing Worsens with: nothing Associated Symptoms: denies other symptoms - Related Data Home Medications Medication Instructions Recorded Confirmed Aspirin 81 mg PO HS 12/02/14 09/04/17 Levothyroxine Sodium [Synthroid] 25 mcg PO DAILY 12/02/14 09/04/17 Losartan Potassium [Cozaar] 50 mg PO DAILY 12/02/14 09/04/17 Multivitamins, Thera [Theragran] 1 tab PO DAILY 12/02/14 09/04/17 Pravastatin Sodium [Pravachol] 80 mg PO HS 12/02/14 09/04/17 Triamterene/Hydrochlorothiazid 1 tab PO DAILY 12/02/14 09/04/17 [Maxzide 37.5-25] Vit C/E/Zn/Coppr/Lutein/Zeaxan 1 cap PO BID 09/04/17 09/04/17 [Preservision Areds 2 Softgel] Previous Rx's Medication Instructions Recorded HYDROcodone/APAP 5-325MG [Ring[place] 1 tab PO Q6HR PRN #12 tab 06/11/20 5-325] Allergies Allergy/AdvReac Type Severity Reaction Status Date / Time codeine AdvReac Unknown Verified 06/11/20 02:09 sulfamethoxazole AdvReac Unknown Verified 06/11/20 02:09 [From ] trimethoprim [From ] AdvReac Unknown Verified 06/11/20 02:09 ANESTHETICS AdvReac Unknown Uncoded 06/11/20 02:09 Review of Systems ROS Statement: Those systems with pertinent positive or pertinent negative responses have been documented in the HPI. ROS Other: All systems not noted in ROS Statement are negative. Past Medical History Past Medical History: Hyperlipidemia, Hypertension, Syncope, Thyroid Disorder Additional Past Medical History / Comment(s): hypothyroid. Brain Aneurysm - sees Dr Russo; saw in Last May 2014, everything was okay. Sees Dr Crews outpt for history of syncopal episodes History of Any Multi-Drug Resistant Organisms: None Reported Past Surgical History: Appendectomy, Tonsillectomy Additional Past Surgical History / Comment(s): "PER PT UNKNOWN" Past Anesthesia/Blood Transfusion Reactions: Previous Problems w/ Anesthesia Additional Past Anesthesia/Blood Transfusion Reaction / Comment(s): Sensitive to anesthesia; hard to wake up Past Psychological History: No Psychological Hx Reported Past Alcohol Use History: None Reported Past Drug Use History: None Reported - Past Family History Father History Unknown: Yes Family Medical History: Chest Pain / Angina Mother History Unknown: Yes Family Medical History: Hypertension Additional Family Medical History / Comment(s): born with heart problem Brother(s) History Unknown: Yes Family Medical History: Cancer Additional Family Medical History / Comment(s): one - Throat cancer. second - Spine cancer, DVT Son(s) History Unknown: Yes Family Medical History: Thyroid Disorder Additional Family Medical History / Comment(s): Ulcerative Colitis Daughter(s) History Unknown: Yes Family Medical History: Thyroid Disorder General Exam - General Exam Comments Initial Comments: Pain in the right hip area with tenderness Limitations: no limitations General appearance: alert, in no apparent distress Head exam: Present: atraumatic, normocephalic, normal inspection Eye exam: Present: normal appearance, PERRL, EOMI. Absent: scleral icterus, conjunctival injection, periorbital swelling ENT exam: Present: normal exam, mucous membranes moist Neck exam: Present: normal inspection. Absent: tenderness, meningismus, lymphadenopathy Respiratory exam: Present: normal lung sounds bilaterally. Absent: respiratory distress, wheezes, rales, rhonchi, stridor Cardiovascular Exam: Present: regular rate, normal rhythm, normal heart sounds. Absent: systolic murmur, diastolic murmur, rubs, gallop, clicks GI/Abdominal exam: Present: soft, normal bowel sounds. Absent: distended, tenderness, guarding, rebound, rigid Extremities exam: Present: normal inspection, full ROM, normal capillary refill. Absent: tenderness, pedal edema, joint swelling, calf tenderness Back exam: Present: normal inspection Neurological exam: Present: alert, oriented X3, CN II-XII intact Psychiatric exam: Present: normal affect, normal mood Skin exam: Present: warm, dry, intact, normal color. Absent: rash Course Vital Signs 06/11/20 06/11/20 06/11/20 02:05 03:05 03:33 Temperature 98.6 F Pulse Rate 66 68 Respiratory 18 18 Rate Blood Pressure 225/100 200/88 197/93 O2 Sat by Pulse 97 98 Oximetry - Reevaluation(s) Reevaluation #1: Medical record is reviewed Patient symptoms are improved here in the ER Patient informed results and questions have been answered Patient family feel comfortable for discharge Medical Decision Making - Medical Decision Making 89 female to the ER with right leg pain and nausea hamstring strain patient is treated here be discharged home - Radiology Data Radiology results: report reviewed (CT abdomen and pelvis and right hip is negative for acute disease does have osteoarthritis), image reviewed Disposition Clinical Impression: Right hamstring muscle strain, Right leg pain, Lumbar radiculopathy, acute, Osteoarthritis Disposition: HOME SELF-CARE Condition: Good Instructions (If sedation given, give patient instructions): Lumbar Radiculopathy (ED), Hypertension (ED) Prescriptions: HYDROcodone/APAP 5-325MG [Ringgold 5-325] 1 tab PO Q6HR PRN #12 tab PRN Reason: Pain Is patient prescribed a controlled substance at d/c from ED?: No Referrals: Lanette Funk MD [Primary Care Provider] - 1-2 days
[2020-06-11] MEDS ORDERED: cloNIDine HCL 0.2 MG TAB PO STA (03:08)
--- NOTE | 2020-06-11 03:08 | CT ---
EXAM: CT Abdomen and Pelvis Without Intravenous Contrast CLINICAL HISTORY: Abdominal pain. Right hip pain. TECHNIQUE: Axial computed tomography images of the abdomen and pelvis without intravenous contrast. CTDI is 10.23 mGy and DLP is 413.4 mGy-cm. This CT exam was performed using one or more of the following dose reduction techniques: automated exposure control, adjustment of the mA and/or kV according to patient size, and/or use of iterative reconstruction technique. COMPARISON: No previous study. FINDINGS: Lung bases: Minimal subsegmental atelectasis posteriorly at the lung bases in the lingular region. Heart: Cardiomegaly. ABDOMEN: Liver: Mild fatty liver. The liver and the spleen are normal in contour. Gallbladder and bile ducts: See below. Pancreas: See below. Spleen: Punctate calcifications within the liver and the spleen compatible with previous granulomatous disease. Adrenals: The adrenal glands, the head, body, tail of the pancreas and the gallbladder are unremarkable. Kidneys and ureters: A 0.8 cm probable hemorrhagic cyst midpole region of the left kidney. Presumed post surgical changes lower pole region of the right kidney. Additional simple renal cysts are noted which requires no follow-up. Magnetic resonance imaging of the abdomen is advised for further assessment of complex left renal cyst. No obstructing stones. No hydronephrosis. Stomach and bowel: Small quantity of ingested material in the stomach. Moderate quantity of stool throughout the colon. No bowel obstruction. No mucosal thickening. PELVIS: Appendix: No findings to suggest acute appendicitis. Bladder: The bladder is underdistended. No stones. Reproductive: See below. ABDOMEN and PELVIS: Intraperitoneal space: Unremarkable. No free air. No significant fluid collection. Bones/joints: No spondylolysis. Sacrum and coccyx are unremarkable. Soft tissues: 2 cm umbilical hernia containing mesenteric fat only. Ischiorectal fat is clean. Vasculature: Atherosclerotic disease of the abdominal aorta without change in caliber. Vascular calcifications the uterus appeared No abdominal aortic aneurysm. Lymph nodes: No retroperitoneal lymphadenopathy. No pelvic or inguinal lymphadenopathy. The superior and inferior pubic rami are unremarkable. Mild to moderate osteoarthritic changes about the hip joints. Moderate osteoarthritic changes about the sacroiliac joints. Transverse processes of the lumbar spine are unremarkable. IMPRESSION: 1. Cardiomegaly. 2. Fatty liver. 3. Gallbladder is unremarkable. 4. Complex left renal cyst. Magnetic resonance imaging is advised to further assessment. 5. Presumed postsurgical changes lower pole region of the right kidney. 6. No bowel obstruction. 7. No active inflammatory process is noted.
--- NOTE | 2020-06-11 03:10 | CT ---
EXAM: CT Right Lower Extremity Without Intravenous Contrast, Hip CLINICAL HISTORY: Right hip pain. TECHNIQUE: Axial computed tomography images of the right hip without intravenous contrast. CTDI is 10.23 mGy and DLP is 413.4 mGy-cm. This CT exam was performed using one or more of the following dose reduction techniques: automated exposure control, adjustment of the mA and/or kV according to patient size, and/or use of iterative reconstruction technique. COMPARISON: 12/02/2014. 06/30/2016. FINDINGS: Bones/joints: Mild to moderate osteoarthritic changes about the right hip joint are noted. No acute fracture or dislocation. Mild to moderate osteoarthritic changes about the sacroiliac joints. The right superior and inferior pubic rami are unremarkable. Visualized right iliac wing is unremarkable. The visualized sacrum and coccyx are unremarkable. Soft tissues: Minimal subcutaneous stranding within the soft tissues about the lateral and posterior aspect of the right hip joint suggestive of subcutaneous bruising. Vasculature: Atherosclerotic disease. Vascular calcifications of the uterus. Bowel: Diverticulosis. IMPRESSION: 1. Osteoarthritic changes about the right hip joint. 2. No acute fracture or dislocation.
[2020-06-11 03:37] VITALS: BP 197/93; PULSE 68
== END 2020-06-11 03:44 | disposition home or self-care (01) ==
LOC: EC 01:59
DX: S76.311A Strain of muscle, fascia and tendon of the posterior muscle group at thigh level, right thigh, initial encounter (principal); E03.9 Hypothyroidism, unspecified; M16.11 Unilateral primary osteoarthritis, right hip; E78.5 Hyperlipidemia, unspecified; M54.16 Radiculopathy, lumbar region; I10 Essential (primary) hypertension; X58.XXXA Exposure to other specified factors, initial encounter; Z79.82 Long term (current) use of aspirin; Z79.899 Other long term (current) drug therapy
CPT/HCPCS: 74176; 73700; 99284; 96372; J2270

== ENCOUNTER → 2020-06-30 | Outpatient (CLI) | payer MEDICARE ==
--- NOTE | 2020-06-30 13:29 | MR ---
EXAMINATION TYPE: MR angio head wo con DATE OF EXAM: 06/30/2020 COMPARISON: MRA head June 06, 2017 HISTORY: Aneurysm Non Ruptured, Follow up study. No symptoms TECHNIQUE: Time of flight images focusing on the [place] were performed without contrast.. 2-D and 3-D postprocessing imaging is performed on an independent workstation. FINDINGS: Stable tortuous course to the basilar artery. Suspected hypoplastic left vertebral artery a nd dominant right vertebral artery filling basilar artery similar to prior. Hypoplastic bilateral pos terior communicating arteries. No significant focal stenosis or aneurysmal change. Images of the anterior circulation show stable 6.5 x 4.2 mm aneurysm of the distal left internal meza tid artery accounting for technical differences image 81 series 301 left supraclinoid level. No new a neurysm is seen. Patent anterior communicating artery. No significant focal stenosis. 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 No new aneurysm.
== END ==
LOC: RADMRIMAIN 12:40
PROVIDERS: ATTEND Neurological Surgery
DX: I67.1 Cerebral aneurysm, nonruptured (principal)
CPT/HCPCS: 70544

== ENCOUNTER → 2020-11-23 | Outpatient (CLI) | payer MEDICARE ==
--- NOTE | 2020-11-24 06:53 | MR ---
EXAMINATION TYPE: MR kidney wo/w con DATE OF EXAM: 11/23/2020 COMPARISON: CT abdomen and pelvis June 11, 2020 HISTORY: Renal cystic lesion, abnormal CT CONTRAST: Standard multiplanar, multisequence MRI departmental protocol utilizing 6.5 mL intravenous Gadavist g adolinium contrast. Imaging performed of the abdomen focusing on the bilateral kidneys. FINDINGS: Kidneys: Some cortical thinning bilaterally is present. There are several nonenhancing thin-walled cy sts scattered throughout the right kidney largest posteriorly mid to lower pole level measures 4.2 x 3.4 cm axial image 19 series 601. There is a 3 mm exophytic lesion medially of T1 hyperintensity and T2 hypointensity consistent with hemorrhagic cyst for reference image 62 series 801. There is curvili near thin walled fluid collection probable exophytic elongated cyst between the anterolateral upper p ole right kidney and the right hepatic lobe. Left kidney shows a few simple small thin-walled cysts. Corresponding to lesion of concern on CT there is a 10 mm partially exophytic lesion of T1 hyperinten sity and T2 hypointensity without enhancement seen image 21 series 601 consistent with hemorrhagic cy st. No suspicious enhancing solid mass is identified. No hydronephrosis seen bilaterally. Other: Lung bases are clear. The liver, gallbladder, spleen, and both adrenal glands appear within no rmal limits. Moderate generalized fat replaced atrophy of the pancreas with scattered thin walled subcentimeter cy sts and/or cystic lesions throughout the body and tail, largest measures 1.6 x 0.9 cm axial image 24 series 601. No suspicious enhancement or solid component identified. No suspicious bowel dilatation. No intra-abdominal ascites. Slight scoliotic curvature with multileve l spurring in the lumbar spine. IMPRESSION: 1. Scattered benign thin-walled cysts in both kidneys as well as subcentimeter hemorrhagic cysts, one corresponding to area of concern on recent CT midpole of the left kidney. No concerning solid or cys tic renal mass bilaterally. 2. Moderate generalized pancreatic atrophy with scattered small thin-walled cysts and/or cystic lesio ns, advise imaging follow-up in one year's time to reassess.
== END | disposition home or self-care (01) ==
LOC: RADMRIMAIN 12:22
PROVIDERS: ATTEND Family Medicine
DX: N28.1 Cyst of kidney, acquired (principal); K86.89 Other specified diseases of pancreas
CPT/HCPCS: 74183; A9585

== ENCOUNTER → 2020-12-04 | Outpatient (CLI) | payer MEDICARE ==
--- NOTE | 2020-12-05 10:22 | MM ---
Reason for exam: screening (asymptomatic). Last mammogram was performed 1 year and 2 months ago. History: Patient is postmenopausal. Family history of breast cancer in daughter. Benign excisional biopsy, January 07, 1997. Cyst aspiration of the left breast. Took estrogen for 10 years. Took progesterone for 10 years. Physical Findings: A clinical breast exam by your physician is recommended on an annual basis and results should be correlated with mammographic findings. MG 3D Screening Mammo W/Cad Bilateral CC and MLO view(s) were taken. Prior study comparison: October 12, 2019, bilateral MG 3d screening mammo w/cad. June 23, 2018, bilateral MG 3d screening mammo w/cad. The breast tissue is heterogeneously dense. This may lower the sensitivity of mammography. Stable benign calcifications. There is no discrete abnormality. No significant changes when compared with prior studies. ASSESSMENT: Benign, BI-RAD 2 RECOMMENDATION: Routine screening mammogram of both breasts in 1 year.
== END | disposition home or self-care (01) ==
LOC: RADMAMWWP 14:27
PROVIDERS: ATTEND Family Medicine
DX: Z12.31 Encounter for screening mammogram for malignant neoplasm of breast (principal); Z80.3 Family history of malignant neoplasm of breast
CPT/HCPCS: 77063; 77067

== ENCOUNTER → 2020-12-11 | Outpatient (CLI) | payer MEDICARE ==
[2020-12-11 14:51] LABS: HCT 35.9 % (37.2-46.3); HGB 11.8 g/dL (12.0-15.0); MCH 29.4 pg (27.0-32.0); MCHC 32.9 g/dL (32.0-37.0); MCV 89.5 fL (80.0-97.0); Mean Platelet Volume 11.2 fL (9.5-12.2); Platelet Count 277 X 10*3/uL (140-440); RBC 4.01 X 10*6/uL (4.10-5.20); RDW 13.8 % (11.5-14.5); WBC 5.21 X 10*3/uL (4.50-10.00)
[2020-12-11 16:37] LABS: African American GFR (CKD) 66.2 (60.0-200.0); Anion Gap 8.5 mmol/L (4.00-12.00); BUN/Creat Ratio 21.11 Ratio (12.00-20.00); Calcium 10.1 mg/dL (8.7-10.3); Carbon Dioxide 28.5 mmol/L (21.6-31.8); Non-African American GFR(CKD) 57.1 (60.0-200.0); Potassium 3.7 mmol/L (3.5-5.5)
[2020-12-12 01:56] LABS: Ferritin 187.3 ng/mL (10.0-291.0)
[2020-12-12 03:12] LABS: Folate, Serum 23.1 ng/mL
== END | disposition home or self-care (01) ==
LOC: LABWHC1 10:31
PROVIDERS: ATTEND Family Medicine
DX: D64.9 Anemia, unspecified (principal); N18.9 Chronic kidney disease, unspecified
CPT/HCPCS: 36415; 80048; 82607; 82728; 82746; 84207; 85027

== ENCOUNTER → 2021-08-08 | Outpatient (CLI) | payer MEDICARE ==
[2021-08-08 10:23] LABS: INR 0.9 (<1.2); Partial Thromboplastin Time 24.7 sec (22.0-30.0)
[2021-08-08 15:12] LABS: HCT 36.9 % (37.2-46.3); MCH 29.6 pg (27.0-32.0); MCHC 32.5 g/dL (32.0-37.0); MCV 90.9 fL (80.0-97.0); NRBC Per 100 WBC 0 /100 WBCS (0.0-0.0); Platelet Count 269 X 10*3/uL (140-440); RBC 4.06 X 10*6/uL (4.10-5.20); RDW 14.1 % (11.5-14.5); WBC 5.14 X 10*3/uL (4.50-10.00)
[2021-08-08 16:01] LABS: African American GFR (CKD) 65.7 (60.0-200.0); Albumin 4.2 g/dL (3.8-4.9); Albumin/Globulin Ratio 1.62 (1.60-3.17); Anion Gap 10.1 mmol/L (10.00-18.00); BUN/Creat Ratio 20.56 Ratio (12.00-20.00); Blood Urea Nitrogen 18.5 mg/dL (9.0-27.0); Calcium 9.9 mg/dL (8.7-10.3); Carbon Dioxide 26.9 mmol/L (20.0-27.5); Globulin 2.6 g/dL (1.6-3.3); Non-African American GFR(CKD) 56.7 (60.0-200.0); Potassium 3.6 mmol/L (3.5-5.5); Total Bilirubin 0.6 mg/dL (0.30-1.20); Total Protein 6.8 g/dL (6.2-8.2)
[2021-08-08 21:14] LABS: Appearance,Urine Clear (Clear); Bacteria,Urine None Seen /HPF (None Seen); Bilirubin,Urine Negative (Negative); Blood,Urine Negative (Negative); Color,Urine Yellow (Yellow); Ketones,Urine Negative (Negative); Nitrite,Urine Negative (Negative); PH, Urine 7.5 (5.0-8.0); Specific Gravity,Urine 1.009 (1.001-1.030); Urobilinogen,Urine 0.2 (0.2,1.0)
== END | disposition home or self-care (01) ==
LOC: LABPAT 09:15
PROVIDERS: ATTEND Orthopaedic Surgery
DX: Z01.812 Encounter for preprocedural laboratory examination (principal); M17.12 Unilateral primary osteoarthritis, left knee
CPT/HCPCS: 36415; 80053; 81001; 85027; 85610; 85730; 87070

== ENCOUNTER 2021-09-03 05:48 | Day surgery (SDC) | payer MEDICARE ==
[2021-08-30 11:55] VITALS: BMI 22.4
[~2021-09-03 05:48] MED LIST: ACETAMINOPHEN TAB 500 MG TAB PO PRN; GABAPENTIN 300 MG CAP PO PRN; MELOXICAM 7.5 MG TAB PO PRN; TRANEXAMIC ACID IN NACL,ISO-OS 1,000 MG in SALINE 1 100ML.BAG IVPB PRN
[2021-09-03] MEDS ORDERED: ONDANSETRON 4 MG/2 ML VIAL IVP ONE (05:52)
[2021-09-03] MEDS ORDERED: LIDOCAINE 1% (10MG/ML) FOR IV START INTRADERMA PRN (05:52)
[2021-09-03] MEDS ORDERED: ONDANSETRON 4 MG/2 ML VIAL ONE (06:26)
[2021-09-03] MEDS: LACTATED RINGERS 1,000 ML IV SCH (06:31)
[2021-09-03] MEDS ORDERED: DEXAMETHASONE SOD PHOSPHATE 4 MG/ML 1 ML VIAL IVP ONE (06:32)
[2021-09-03] MEDS ORDERED: MIDAZOLAM 2 MG/2 ML VIAL IVP ONE (06:34)
[2021-09-03] MEDS ORDERED: fentaNYL (PF) 50 MCG/ML 2 ML AMP IVP ONE (06:34)
[2021-09-03] MEDS ORDERED: hydrALAZINE HCL 20 MG/ML 1 ML VIAL ONE (06:52)
[2021-09-03] MEDS ORDERED: PROPOFOL 10 MG/ML 20 ML VIAL IV ONE (06:52)
[2021-09-03] MEDS ORDERED: SODIUM CHLORIDE 0.9% (PF) 10 ML VIAL ONE (06:52)
[2021-09-03] MEDS ORDERED: diphenhydrAMINE 50 MG/ML 1 ML VIAL ONE (06:52)
[2021-09-03] MEDS ORDERED: ROPIVACAINE 5 MG/ML 30 ML VIAL ONE (06:52)
[2021-09-03] MEDS ORDERED: TRANEXAMIC ACID IN NACL,ISO-OS 1,000 MG/100 ML BAG ONE (06:52)
--- NOTE | 2021-09-03 06:57 | P.ANPRN ---
Procedure Note - Anesthesia - Nerve Block Performed Left Adductor Canal Infusion Time Out Performed: Yes Date of Procedure: 09/03/21 Procedure Start Time: 06:33 Procedure Stop Time: 06:45 Location of Patient: PreOp Indication: Requested by Surgeon Specifically requested for management of pain by DrHéctor: Panchito Elias Sedation Type: Sedate with meaningful contact maintained Preparation: Sterile Prep, Sterile Dressing Position: Supine Needle Types: Pajunk Needle Gauge: 18 Ultrasound used to visualize needle placement: Yes Ultrasound used to observe medication spread: Yes Injectate: 0.5% Ropivacaine (see comment for volume) (15 ml + 15 ml NS) Blood Aspirated: No Pain Paresthesia on Injection Noted: No Resistance on Injection: Normal Image Stored and Saved: Yes Events: Uneventful and Well Tolerated
--- NOTE | 2021-09-03 06:59 | P.ANPRN ---
Procedure Note - Anesthesia - Nerve Block Performed Left iPack Single Time Out Performed: Yes Date of Procedure: 09/03/21 Procedure Start Time: 06:46 Procedure Stop Time: 06:54 Location of Patient: PreOp Indication: Requested by Surgeon Specifically requested for management of pain by DrHéctor: Panchito Elias Sedation Type: Sedate with meaningful contact maintained Preparation: Sterile Prep Position: Right Lateral Needle Types: Pajunk Needle Gauge: 20, 21, Other (see comment) Ultrasound used to visualize needle placement: Yes Ultrasound used to observe medication spread: Yes Injectate: 0.5% Ropivacaine (see comment for volume) (15 ml + 15 ml NS) Blood Aspirated: No Pain Paresthesia on Injection Noted: No Resistance on Injection: Normal Image Stored and Saved: Yes Events: Uneventful and Well Tolerated
[2021-09-03] MEDS ORDERED: fentaNYL (PF) 50 MCG/ML 2 ML AMP IV PRN (07:00)
[2021-09-03] MEDS ORDERED: ceFAZolin 1,000 MG in SODIUM CHLORIDE 0.9% 1,000 ML IRRIGATION ONE (07:01)
[2021-09-03] MEDS ORDERED: NA PHOS,M-B/NA PHOS,DI-BA 133 ML ENEMA RECTAL PRN (07:55)
[2021-09-03] MEDS ORDERED: ONDANSETRON 4 MG/2 ML VIAL IVP PRN (07:55)
[2021-09-03] MEDS ORDERED: NALOXONE 0.4 MG/ML 1 ML VIAL IV PRN (07:55)
[2021-09-03] MEDS ORDERED: MAGNESIUM HYDROXIDE 2,400 MG/10 ML CUP PO PRN (07:55)
[2021-09-03] MEDS ORDERED: HYDROmorphone 0.5 MG/0.5 ML SYRINGE IVP PRN ×3 (07:55)
[2021-09-03] MEDS ORDERED: bisacodyL 10 MG SUPP RECTAL PRN (07:55)
[2021-09-03] MEDS ORDERED: HYDROcodone/APAP 5-325MG 1 EACH TAB PO PRN ×2 (07:56)
[2021-09-03] MEDS ORDERED: HYDROcodone/APAP 7.5-325MG 1 EACH TAB PO PRN (08:00)
--- NOTE | 2021-09-03 08:37 | P.OP ---
Date of Procedure: 09/03/21 Preoperative Diagnosis: Severe Osteoarthritis left knee Postoperative Diagnosis: Severe osteoarthritis left knee Procedure(s) Performed: Left total knee arthroplasty Implants: [employer] Journey II CR Oxinium cruciate retaining femoral component size 5, left [employer] Journey nonporous tibial baseplate size 4, left [employer] Journey II, XLPE Deep Dished articular insert, size 11 mm, Size 3-4, left [employer] Betzy II resurfacing patellar component, oval, 32 mm All components were cemented using Palacos R bone cement The articulation is Oxinium on polyethylene Anesthesia: spinal Surgeon: Panchito Elias Light Rail Operator #1: Mahogany Dooley Estimated Blood Loss (ml): 30 Pathology: other (Bone and cartilage) Condition: stable Disposition: PACU Indications for Procedure: After failure of conservative treatment we discussed the surgical and nonsurgical treatment options at length. Patient wishes to proceed with a total knee arthroplasty. Complications specific to this procedure were discussed at length, including but not limited to infection, bleeding, stiffness, and nerve injury. Covid-19 was also discussed at length with the patient, and they are aware of the current policies and procedures. The patient was given the option of delaying surgery, but they elect to proceed knowing these risks. Patient is aware of all these complications and informed consent was obtained Operative Findings: The operative findings are consistent with severe osteoarthritis of the left knee Description of Procedure: Patient was seen in the preoperative area and the consent was reviewed and the operative site was marked with a skin marker. The patient verified the procedure and the operative site. An adductor canal pain catheter and an iPACK block was placed by anesthesia in the preoperative area. The patient was then brought to the operating room and given preoperative antibiotics intravenously. A gram of transexamic acid was given intravenously. A spinal anesthetic was administered by the anesthesia department. A tourniquet was placed on the upper thigh and the lower extremity was prepped with chlorhexidine and draped in usual sterile fashion. A universal timeout was then performed which confirmed the patient's name, surgical site, ALLERGIES, and consent. The lower extremity was then exsanguinated and tourniquet was inflated to 250 mmHg. A standard anterior midline approach to the knee was performed. The skin and subcutaneous tissue were sharply dissected down to the patellar tendon. A medial parapatellar arthrotomy was then performed. The knee was then extended, the patellar was everted, and the knee was again flexed. The infra-patellar fat pad was removed in order to enhance exposure. The anterior horns of both menisci were excised, and a release was performed to the posterior medial aspect of the knee. On gross visual inspection, there was complete loss of articular cartilage in the medial and patellofemoral joint spaces. There was also significant cartilage damage in the lateral compartment. There were multiple periarticular osteophytes globally about the knee which were then removed with a Ronguer. The femoral canal was then opened with the 9.5 mm intramedullary drill. The 8 mm intramedullary traci was then inserted into the femoral canal with the distal femoral cutting guide set for 5 of valgus. The distal femoral cutting block was then pinned in place. The intramedullary traci was then removed, and the distal femur was then cut. The cutting block was then removed and the cut was checked for symmetry. The resected bone was then measured to confirm the appropriate distal femoral resection. Next, the sizing guide was then placed and set for 3 external rotation based off of the epicondylar axis and Whitesides line. Pins were then placed and the drill holes, and the femur was sized with the sizing stylus. The pins were then removed, and the sizing guide was then removed. The spikes of the femoral block was then placed into the predrilled holes, and malleted into place. Two 45 mm pins were then placed into the fixation holes on the cutting block. An vivien wing was then used to ensure there would be no notching with the anterior cut. The anterior condyles were cut without notching. The anterior chord cut was then performed, followed by the posterior cut, posterior chamfer cut, and the anterior chamfer cut. The collateral ligaments were protected during the entire process. The cutting block was then removed. Any remaining bone and osteophytes were removed from the femur with a Ronguer. The femoral canal was plugged with autologous bone. Attention was then directed to the tibia. The remaining ACL was removed with a Ronguer, and the tibia was then gently subluxed forward with a large bent knee retractor. Any remaining menisci were excised. The posterior lateral corner was cauterized in order to coagulate the lateral geniculate artery. The extra medullary tibial cutting guide was then placed, set for the appropriate rotation, slope, and depth of resection. The proximal tibia cutting guide was then pinned in place. Proximal tibia was then cut and sized. The femoral trial was placed. A narrow saw blade was then used to remove the anterior intracondylar femoral bone. The CR notch trial was then placed. The tibial trial was placed with the appropriate-sized insert. The knee was able to fully extend and flex to 130 and was stable throughout all range of motion. The knee was then extended and the patella was everted. Patella was then measured, and then using an osteotomy guide, the patella was cut at the appropriate level. The patella was then measured and drilled and the patella trial was then placed. The knee was then taken through range of motion with the patella trial and the patella tracked normally using the no thumbs technique. The knee was then extended patella trial was then removed and the patella was everted. Knee was then flexed and lug holes were drilled through the femoral trial and the femoral trial was then removed. The tibial was then re-exposed, and the tibial broach guide was then pinned in place after it was set for the appropriate rotation to allow for the most coverage without overhang. The tibia was then reamed and broached. The cut surfaces of bone were then irrigated with pulsatile lavage. The knee was also irrigated with Irrisept solution. The components were then opened, the cement was mixed, and the components were then cemented in place. The cement was allowed to harden with the knee in full extension. After the cemented hardened, the tourniquet was released and hemostasis was obtained. A second gram of transexamic acid was given intravenously. The knee was again irrigated. The knee was again taken through range of motion and found to be stable throughout all range of motion of 0-130, and the patella tracked normally. The fascia was then closed with 0 Vicryl followed by #2 strata fix suture. The subcutaneous tissue was closed with 3-0 Vicryl and 3-0 strata fix. Exofin glue was used for the skin and placed with the knee in flexion. After the glue had dried, and Optafoam silver impregnated dressing was applied. The patient was then transferred to recovery room in stable condition. The development assistant MISAEL Madsen was required due the complexity surgery and the need for a skilled shipping assistant. She assisted in positioning, draping, retraction, and closure of the wound.
[2021-09-03] MEDS ORDERED: ROPIVACAINE 0.2%-NS ON-Q PUMP 1,090 MG, EMPTY PAIN BALL 1 EACH MISCELLANE PRN (08:52)
--- NOTE | 2021-09-03 09:23 | XR ---
EXAMINATION TYPE: XR knee limited LT DATE OF EXAM: 09/03/2021 CLINICAL HISTORY: Left knee pain and arthritis status post total knee replacement. TECHNIQUE: Portable AP and crosstable lateral views of the left knee are obtained immediately postop eratively. COMPARISON: None FINDINGS: Metallic hardware from total left knee arthroplasty is seen and appears satisfactory in al ignment and position. There is evidence of recent surgery with diffuse subcutaneous gas and soft tis delgado swelling noted. IMPRESSION: METALLIC HARDWARE FROM TOTAL LEFT KNEE ARTHROPLASTY IS SATISFACTORY IN ALIGNMENT.
[2021-09-03] MEDS: SODIUM CHLORIDE 0.9% 1,000 ML IV SCH (10:34)
[2021-09-03] MEDS: HYDROcodone/APAP 7.5-325MG 1 EACH TAB PO PRN ×2 (12:21→18:14)
--- NOTE | 2021-09-03 14:18 | P.CONS ---
History of Present Illness - Reason for Consult Consult date: 09/03/21 Medical management - Chief Complaint Elective admission for Knee arthroplasty - History of Present Illness Patient is a 89-year-old female with a known history of hypertension, hypothyroidism, brain aneurysm and previous history of smoking was admitted to the hospital for left total knee arthroplasty. Patient tolerated the procedure well. Currently denies any complaints of left knee pain. Patient is on nerve block. No complaints of headache or dizziness or lightheadedness. SBP in low 100s. Denied any cough or sputum production. No nausea vomiting or abdominal pain or diarrhea. Patient denied any recent illnesses or sick contacts. Review of Systems Constitutional: Patient denies any fever or chills . No generalized weakness or weight loss. Abdomen: Patient denied nausea vomiting and diarrhea and abdominal pain. Cardiovascular: Patient denies any chest pain or short of breath no palpitations. Respiratory: patient denied any cough is from production. No shortness of breath Neurologic: Patient denied any numbness or tingling headache. Musculoskeletal: Patient denies any complaints of joint swelling or deformity. Skin: Negative Psychiatric: Negative Endocrine: No heat or cold intolerance. No recent weight gain. Genitourinary: No dysuria or hematuria. All other 14 point ROS negative except the above Past Medical History Past Medical History: Hypertension, Osteoarthritis (OA), Syncope, Thyroid Disorder Additional Past Medical History / Comment(s): Brain Aneurysm, constipation, hx vertigo, menieres disease History of Any Multi-Drug Resistant Organisms: None Reported Past Surgical History: Adenoidectomy, Appendectomy, Tonsillectomy, Tubal Ligation Additional Past Surgical History / Comment(s): keshia cataracts Past Anesthesia/Blood Transfusion Reactions: Previous Problems w/ Anesthesia Additional Past Anesthesia/Blood Transfusion Reaction / Comm: Sensitive to anesthesia; hard to wake up Past Psychological History: No Psychological Hx Reported Smoking Status: Former smoker Past Alcohol Use History: Rare Additional Past Alcohol Use History / Comment(s): quit smoking 55 yrs ago, smoked for 15 yrs Past Drug Use History: None Reported - Past Family History Father History Unknown: Yes Family Medical History: Chest Pain / Angina Mother History Unknown: Yes Family Medical History: Hypertension Additional Family Medical History / Comment(s): born with heart problem Brother(s) History Unknown: Yes Family Medical History: Cancer Additional Family Medical History / Comment(s): one - Throat cancer. second - Spine cancer, DVT Son(s) History Unknown: Yes Family Medical History: Thyroid Disorder Additional Family Medical History / Comment(s): Ulcerative Colitis Daughter(s) History Unknown: Yes Family Medical History: Thyroid Disorder Medications and Allergies Home Medications Medication Instructions Recorded Confirmed Type Levothyroxine Sodium [Synthroid] 25 mcg PO DAILY 12/02/14 09/03/21 History Multivitamins, Thera [Theragran] 1 tab PO DAILY 12/02/14 09/03/21 History Pravastatin Sodium [Pravachol] 80 mg PO HS 12/02/14 09/03/21 History Triamterene/Hydrochlorothiazid 1 tab PO DAILY 12/02/14 09/03/21 History [Maxzide 37.5-25] Vit C/E/Zn/Coppr/Lutein/Zeaxan 1 cap PO BID 09/04/17 09/03/21 History [Preservision Areds 2 Softgel] HYDROcodone/APAP 5-325MG [[place] 1 tab PO Q6HR PRN #12 tab 06/11/20 09/03/21 Rx 5-325] Gabapentin [Neurontin] 100 mg PO TID 08/30/21 09/03/21 History Losartan Potassium 100 mg PO DAILY 08/30/21 09/03/21 History Aspirin 325 mg PO BID #60 tab 09/03/21 Rx HYDROcodone/APAP 7.5-325MG [[place] 1 - 2 tab PO Q6H PRN #32 tab 09/03/21 Rx 7.5-325] Sennosides [Senokot] 2 tab PO DAILY PRN #60 tablet 09/03/21 Rx Allergies Allergy/AdvReac Type Severity Reaction Status Date / Time tramadol Allergy PATIENT Verified 09/03/21 06:00 "FEELS WIERD" codeine AdvReac Unknown Verified 09/03/21 06:00 sulfamethoxazole AdvReac Unknown Verified 09/03/21 06:00 [From ] trimethoprim [From ] AdvReac PATIENT Verified 09/03/21 06:00 "FEELS WIERD" ANESTHETICS AdvReac Sensitive Uncoded 09/03/21 06:00 to anesthesia; hard to wake up Physical Exam Vitals: Vital Signs Temp Pulse Resp BP BP Pulse Ox 09/03/21 10:00 98 F 57 L 16 136/70 95 09/03/21 09:37 52 L 16 111/56 95 09/03/21 09:22 52 L 16 107/53 95 09/03/21 09:07 54 L 16 114/54 94 L 09/03/21 08:52 54 L 16 101/53 94 L 09/03/21 08:36 96.8 F L 59 L 16 114/54 94 L 09/03/21 06:58 62 16 198/86 99 09/03/21 06:21 98.5 F 62 16 198/88 100 Intake and Output 09/02/21 09/03/21 09/03/21 22:59 06:59 14:59 Intake Total 300 451 Output Total 30 Balance 300 421 Intake: IV 300 451 Output: Estimated Blood Loss 30 Other: Weight 61.9 kg 61.9 kg PHYSICAL EXAMINATION: Patient is lying in the bed comfortably, no acute distress, awake alert and oriented.. HEENT: Normocephalic. Neck is supple. Pupils reactive. Nostrils clear. Oral cavity is moist. Neck reveals no JVD, carotid bruits, or thyromegaly. CHEST EXAMINATION: Trachea is central. Symmetrical expansion. Baseline diminished sounds.Lung patel clear to auscultation and percussion. CARDIAC: Normal S1, S2 with no gallops. No murmurs ABDOMEN: Soft. Bowel sounds normal. No organomegaly. No abdominal bruits. Extremities: reveal no edema. No clubbing or cyanosis Neurologically awake, alert, oriented x3 with well-coordinated movements. No focal deficits noted Skin: No rash or skin lesions. Psychiatric: Coperative. Nonsuicidal Musculoskeletal: No joint swelling or deformity. Normal range of motion.left knee surgical site is bandaged. Assessment and Plan Assessment: S/p left total knee arthroplasty postoperative day 0 Severe osteoarthritis of the left knee Hypertension. Currently patient is hypotensive Hypothyroidism History of brain aneurysm Osteoarthritis Presents to smoking DVT prophylaxis Plan: Patient will be continued pain management, bowel regimen. Encourage incentive spirometry and PT OT will be consulted. Patient does take losartan and Maxide at home which is on hold today and will reinitiate once blood pressure starts going up. Patient be current on GI and DVT prophylaxis. Monitor H&H and follow-up CBC tomorrow. Will continue to follow with you and further recommendations based on clinical course. Thank you for your consult.
[2021-09-03] MEDS ORDERED: PRAVASTATIN SODIUM 80 MG TAB PO SCH (21:00)
[2021-09-03] MEDS ORDERED: SENNOSIDES-DOCUSATE SODIUM 1 EACH TAB PO SCH (21:00)
[2021-09-03] MEDS: ASPIRIN 325 MG TAB PO SCH (21:26)
[2021-09-03] MEDS: GABAPENTIN 100 MG CAP PO SCH (21:27)
[2021-09-04] MEDS: SODIUM CHLORIDE 0.9% 1,000 ML IV SCH (00:30)
[2021-09-04 02:47] VITALS: RESP 16
[2021-09-04] MEDS: LACTATED RINGERS 1,000 ML IV SCH (06:54)
[2021-09-04] MEDS: ASPIRIN 325 MG TAB PO SCH (07:27)
[2021-09-04] MEDS: GABAPENTIN 100 MG CAP PO SCH (07:27)
[2021-09-04] MEDS: HYDROcodone/APAP 7.5-325MG 1 EACH TAB PO PRN ×2 (07:28→11:07)
[2021-09-04 07:51] VITALS: PULSE 65; TEMP 97.9
--- NOTE | 2021-09-04 08:57 | P.DS ---
Providers Expected date of discharge: 09/04/21 Attending physician: Panchito Elias Consults: 09/03/21 07:55 Consult Physician Routine Consulting Provider: Flako Bustillo Consult Reason/Comments: medical management Do you want consulting provider notified?: Yes Primary care physician: Rafal Owens - Discharge Diagnosis(es) (1) Osteoarthritis of left knee Current Visit: Yes Status: Acute (2) S/P total knee arthroplasty Current Visit: Yes Status: Acute Hospital Course: This is a 89-year-old female with known history of degenerative arthritis of the left knee. The patient presented for evaluation as an outpatient. After discussion and consideration patient elects to proceed with total knee arthroplasty. The patient is seen preoperatively by Dr. Elias and medically cleared for surgery by their primary care physician. Patient is admitted to [facility] on 09/03/2021 for total knee arthroplasty. The procedure is performed without complication or sequelae. The patient is doing well postoperatively. Labs and vital signs are stable on day of discharge. On day of discharge patient's knee incision is healing well. There is minimal erythema. There is no drainage noted at this time. There is minimal soft tissue swelling to the knee. Patient has full foot and ankle motion without difficulty or pain. Calf is soft and nontender to palpation. Neurovascular status to the left lower extremity is intact. Patient is discharged home in good condition. Please see med rec for accurate list of home medications. Plan - Discharge Summary Discharge Rx Participant: No New Discharge Prescriptions: New Sennosides [Senokot] 2 tab PO DAILY PRN #60 tablet PRN Reason: Constipation HYDROcodone/APAP 7.5-325MG [[place] 7.5-325] 1 - 2 tab PO Q6H PRN #32 tab PRN Reason: Pain Aspirin 325 mg PO BID #60 tab No Action Triamterene/Hydrochlorothiazid [Maxzide 37.5-25] 1 tab PO DAILY Levothyroxine Sodium [Synthroid] 25 mcg PO DAILY Pravastatin Sodium [Pravachol] 80 mg PO HS Multivitamins, Thera [Theragran] 1 tab PO DAILY Vit C/E/Zn/Coppr/Lutein/Zeaxan [Preservision Areds 2 Softgel] 1 cap PO BID HYDROcodone/APAP 5-325MG [[place] 5-325] 1 tab PO Q6HR PRN #12 tab PRN Reason: Pain Gabapentin [Neurontin] 100 mg PO TID Losartan Potassium 100 mg PO DAILY Discharge Medication List Levothyroxine Sodium [Synthroid] 25 mcg PO DAILY 12/02/14 [History] Multivitamins, Thera [Theragran] 1 tab PO DAILY 12/02/14 [History] Pravastatin Sodium [Pravachol] 80 mg PO HS 12/02/14 [History] Triamterene/Hydrochlorothiazid [Maxzide 37.5-25] 1 tab PO DAILY 12/02/14 [History] Vit C/E/Zn/Coppr/Lutein/Zeaxan [Preservision Areds 2 Softgel] 1 cap PO BID 09/04/17 [History] HYDROcodone/APAP 5-325MG [[place] 5-325] 1 tab PO Q6HR PRN #12 tab 06/11/20 [Rx] Gabapentin [Neurontin] 100 mg PO TID 08/30/21 [History] Losartan Potassium 100 mg PO DAILY 08/30/21 [History] Aspirin 325 mg PO BID #60 tab 09/03/21 [Rx] HYDROcodone/APAP 7.5-325MG [[place] 7.5-325] 1 - 2 tab PO Q6H PRN #32 tab 09/03/21 [Rx] Sennosides [Senokot] 2 tab PO DAILY PRN #60 tablet 09/03/21 [Rx] Follow up Appointment(s)/Referral(s): Panchito Elias DO [Doctor of Osteopathic Medicine] - 09/19/21 11:00 am Activity/Diet/Wound Care/Special Instructions: Weightbearing as tolerated with a walker. CPM 5-6h daily as tolerated. Leave dressing intact. Dressing may be removed by home care nurse or by patient in 7 days. Then change dressing twice daily until follow up. May shower with initial dressing intact and after removal. If dressing become saturated, please remove. Recommend use of compression stockings daily until follow up to help prevent swelling and blood clots. May remove at night before sleeping. Please take aspirin 325mg twice daily for 30 days to prevent blood clots. Please follow up with [facility] and call with any questions or c oncerns, . Discharge Disposition: HOME WITH HOME HEALTH SERVICES
[2021-09-04] MEDS ORDERED: LOSARTAN 50 MG TAB PO SCH (09:00)
[2021-09-04 09:25] LABS: Basophils # (A) 0.03 X 10*3/uL (0.00-0.10); Basophils % (A) 0.3 %; Eosinophils # (A) 0.01 X 10*3/uL (0.04-0.35); Eosinophils % (A) 0.1 %; HCT 28.4 % (37.2-46.3); HGB 9.1 g/dL (12.0-15.0); Immature Grans, Automated 0.3 %; Lymphocytes # (A) 1.82 X 10*3/uL (0.90-5.00); Lymphocytes % (A) 20.6 %; MCH 29.4 pg (27.0-32.0); MCV 91.6 fL (80.0-97.0); Mean Platelet Volume 11.2 fL (9.5-12.2); Monocytes # (A) 1.25 X 10*3/uL (0.20-1.00); Monocytes % (A) 14.2 %; NRBC Per 100 WBC 0 /100 WBCS (0.0-0.0); Neutrophils # (A) 5.68 X 10*3/uL (1.80-7.70); Neutrophils % (A) 64.5 %; Platelet Count 230 X 10*3/uL (140-440); RDW 13.7 % (11.5-14.5); WBC 8.82 X 10*3/uL (4.50-10.00)
--- NOTE | 2021-09-04 09:27 | P.PN ---
Progress Note - Text Progress Note Date: 09/04/21 (408) Anesthesiology Postop day 1 status post total knee arthroplasty with adductor canal catheter. Patient doing well. VAS 5 out of 10. Gross strength intact in lower extremity. Afebrile. Denies alterations in sensorium. Catheter site intact. Heart regular rate Lungs nonlabored Abdomen nondistended Assessment: Postop day 1 status post total knee arthroplasty with adductor canal catheter Plan: All questions answered. Maintain catheter 2 more days with patient removal at home. Instructions were given at discharge. Addendum: Called to see patient around 9 AM. Catheter had been Castillo while removing the bandage. Was taped back together. Tubing was clamped. Had a discussion with the patient about the need to remove the catheter as I can no longer guarantee sterility. Patient was accepting to this resolution. Nurse notified to remove catheter.
[2021-09-04 09:30] LABS: African American GFR (CKD) 57.8 (60.0-200.0); Anion Gap 8.5 mmol/L (10.00-18.00); BUN/Creat Ratio 21.9 Ratio (12.00-20.00); Blood Urea Nitrogen 21.9 mg/dL (9.0-27.0); Calcium 8.4 mg/dL (8.7-10.3); Carbon Dioxide 24.5 mmol/L (20.0-27.5); Non-African American GFR(CKD) 49.9 (60.0-200.0); Potassium 3.9 mmol/L (3.5-5.5)
[2021-09-04 11:12] VITALS: BP 154/55
--- NOTE | 2021-09-05 00:32 | P.PN ---
Subjective Patient is a 89-year-old female with a known history of hypertension, hypothyroidism, brain aneurysm and previous history of smoking was admitted to the hospital for left total knee arthroplasty. Patient tolerated the procedure well. Currently denies any complaints of left knee pain. No complaints of headache or dizziness or lightheadedness. Denied any cough or sputum production. No nausea vomiting or abdominal pain or diarrhea. Patient was already addressed STATING she will be discharged home today, daughter at bedside. Patient denies any other symptoms as above. Her blood pressure was normal postoperatively and her blood pressure medication were held, blood pressure went up again today into 154/55 Labs reviewed showing WBC normal at 8.8, hemoglobin 9.2, BMP is noted. Creatinine 1.0, glucose 107. Patient and daughter were informed to resume losartan and keep holding diuretics of Maxzide upon discharge and keep it in blood pressure and follow-up with PCP Dr. Weeks in 1 week and both agreed for that. Objective - Vital Signs Vital signs: Vital Signs Temp 97.9 F 09/04/21 07:51 Pulse 65 09/04/21 07:51 Resp 16 09/04/21 07:51 BP 154/55 09/04/21 11:12 Pulse Ox 95 09/04/21 07:51 FiO2 Intake & Output 09/03/21 09/04/21 09/04/21 18:59 06:59 18:59 Intake Total 1043 1170 296 Output Total 30 Balance 1013 1170 296 Weight 61.9 kg Intake: IV 451 Intake, IV Titration 770 Amount Sodium Chloride 0.9% 1, 720 000 ml @ 60 mls/hr IV . [id number] [facility] Rx#:[id number] ceFAZolin 2 gm In Sodium 50 Chloride 0.9% 50 ml @ 100 mls/hr IVPB Q8H [facility] Rx#: [id number] Oral 592 400 296 Output: Estimated Blood Loss 30 Other: Voiding Method Bedside Commode Bedside Commode # Voids 1 2 # Bowel Movements 0 - Exam GENERAL: The patient is alert and oriented x3, not in any acute distress. Well developed, well nourished. HEENT: Pupils are round and equally reacting to light. EOMI. No scleral icterus. No conjunctival pallor. Normocephalic, atraumatic. No pharyngeal erythema. No thyromegaly. CARDIOVASCULAR: S1 and S2 present. No murmurs, rubs, or gallops. PULMONARY: Chest is clear to auscultation, no wheezing or crackles. ABDOMEN: Soft, nontender, nondistended, normoactive bowel sounds. No palpable organomegaly. MUSCULOSKELETAL: No joint swelling or deformity. -EXTREMITIES: No cyanosis, clubbing, or pedal edema. Left knee in a dressing, rest of exam is deferred to surgery team NEUROLOGICAL: Gross neurological examination did not reveal any focal deficits. SKIN: No rashes. no petechiae. - Labs CBC & Chem 7: 09/04/21 06:39 09/04/21 06:39 Labs: Abnormal Lab Results - Last 24 Hours (Table) 09/04/21 09/04/21 Range/Units 06:39 06:39 RBC 3.10 L (4.10-5.20) X 10*6/uL Hgb 9.1 L (12.0-15.0) g/dL Hct 28.4 L (37.2-46.3) % Monocytes # 1.25 H (0.20-1.00) X 10*3/uL Eosinophils # 0.01 L (0.04-0.35) X 10*3/uL Anion Gap 8.50 L (10.00-18.00) mmol/L Est GFR (CKD-EPI)AfAm 57.8 L (60.0-200.0) Est GFR (CKD-EPI)NonAf 49.9 L (60.0-200.0) BUN/Creatinine Ratio 21.90 H (12.00-20.00) Ratio Calcium 8.4 L (8.7-10.3) mg/dL Assessment and Plan Assessment: Severe osteoarthritis of the left knee, S/p left total knee arthroplasty postoperative day 1 Hypertension. Hypothyroidism History of brain aneurysm Osteoarthritis Presents to smoking Plan: This is a pleasant 89 years old female who presents with left knee total arthroplasty Continue with postop management with pain and DVT prophylaxis. Surgery primary team Patient informed to resume losartan and keep holding maxzide and follow-up with Dr. Weeks in 1 week, patient and daughter agree. Patient medically stable Discussed with the bedside nurse
== END 2021-09-04 13:52 | disposition home health service (06) ==
LOC: OR 05:48 → 4SSUR 08:36 → OR 09-04 13:52
PROVIDERS: ATTEND Orthopaedic Surgery
DX: M17.12 Unilateral primary osteoarthritis, left knee (principal); E03.9 Hypothyroidism, unspecified; I10 Essential (primary) hypertension; Z79.82 Long term (current) use of aspirin; Z79.899 Other long term (current) drug therapy; Z82.49 Family history of ischemic heart disease and other diseases of the circulatory system; Z83.49 Family history of other endocrine, nutritional and metabolic diseases; Z83.79 Family history of other diseases of the digestive system; Z87.891 Personal history of nicotine dependence; Z88.1 Allergy status to other antibiotic agents; Z88.2 Allergy status to sulfonamides; Z88.4 Allergy status to anesthetic agent; Z88.5 Allergy status to narcotic agent; Z88.8 Allergy status to other drugs, medicaments and biological substances; G89.18 Other acute postprocedural pain
CPT/HCPCS: 27447; 97161; 97165; 64999; 64448; 76942; 80048; 85025; 88300; 73560; C1713; C1776; J2250; J0360; J1200; J1100; J0690 ×2; J2405; J3010; J2795 ×2; J2704

== ENCOUNTER → 2021-12-18 | Outpatient (CLI) | payer MEDICARE ==
[2021-12-18 15:54] LABS: ALT 14 U/L (8-44); AST 28 U/L (13-35); Chol/HDL Ratio 3.22 Ratio; LDL Cholesterol,Calculated 112.7 mg/dL (0.0-131.0)
== END | disposition home or self-care (01) ==
LOC: LABWHC1 08:52
PROVIDERS: ATTEND Internal Medicine Cardiovascular Disease
DX: E78.2 Mixed hyperlipidemia (principal)
CPT/HCPCS: 36415; 80061; 84450; 84460

== ENCOUNTER → 2021-12-24 | Outpatient (CLI) | payer MEDICARE ==
--- NOTE | 2021-12-28 18:20 | MM ---
Reason for Exam: Screening (asymptomatic). Last mammogram was performed 1 year(s) and 1 month(s) ago. Patient History: Menarche at age 14. First Full-Term at age 25. Postmenopausal. Patient used Estrogen for 10 years. Patient used Progesterone for 10 years. Cyst Aspiration on the Left side. Benign Excisional Biopsy. Daughter had breast cancer, age 64. Prior Study Comparison: 06/23/2018 Bilateral Screening Mammogram, [facility]. 10/12/2019 Bilateral Screening Mammogram, [facility]. 12/04/2020 Bilateral Screening Mammogram, [facility]. Tissue Density: There are scattered fibroglandular densities. Findings: Analyzed By CAD. There is no suspicious group of microcalcifications or new suspicious mass in either breast. Overall Assessment: Negative, BI-RAD 1 Management: Screening Mammogram of both breasts in 1 year. A clinical breast exam by your physician is recommended on an annual basis and results should be correlated with mammographic findings. Electronically signed and approved by: Syd Augustin DO
== END | disposition home or self-care (01) ==
LOC: RADMAMWWP 09:35
PROVIDERS: ATTEND Family Medicine
DX: Z12.31 Encounter for screening mammogram for malignant neoplasm of breast (principal); Z78.0 Asymptomatic menopausal state; Z80.3 Family history of malignant neoplasm of breast
CPT/HCPCS: 77063; 77067